=== PATIENT | female | born 1950 ===

== ENCOUNTER 2018-04-19 18:44 | Emergency (ER) | payer MEDICARE, BC, SELFPAY ==
[2018-04-19 18:54] VITALS: BP 171/91; PULSE 89; RESP 18; TEMP 36.6; O2SAT 99
--- NOTE | 2018-04-19 19:05 | ED.ABDPAIN ---
HPI - Abdominal Pain <KATY Sorenson - Last Filed: 04/19/18 22:41> General Chief Complaint: Abdominal Pain Stated Complaint: STATES STOMACH PROBLEM X2-3 WKS Time Seen by Provider: 04/19/18 19:04 Source: patient Mode of arrival: ambulatory Limitations: no limitations History of Present Illness HPI narrative: 68-year-old female with history of fibromyalgia and is nonsmoker here for complaint of having epigastric pain over the past 3 weeks. She denies any stressors or relievers of the pain. She denies any nausea vomiting. She denies any trauma to that area. No fevers no chills. She denies any urinary symptoms. Last bowel movement was yesterday and was unremarkable. She denies any other concerns or complaints at this timeframe. MD complaint: abdominal pain Related Data Home Medications Medication Instructions Recorded Confirmed clonazepam 1 mg tablet 1 mg PO BID 04/16/18 04/16/18 tramadol 50 mg disintegrating mg PO tab 04/16/18 04/16/18 tablet trazodone 50 mg tablet 50 mg PO DAILY 04/16/18 04/16/18 Previous Rx's Medication Instructions Recorded esomeprazole magnesium 20 mg PO DAILY #14 cap 04/19/18 Allergies Allergy/AdvReac Type Severity Reaction Status Date / Time acetaminophen [From Vicodin] Allergy Mild Vomiting Verified 04/16/18 11:23 hydrocodone [From Vicodin] Allergy Mild Vomiting Verified 04/16/18 11:23 zolpidem [From Ambien] Allergy Verified 04/16/18 11:23 Review of Systems <KATY Sorenson - Last Filed: 04/19/18 22:41> Constitutional Denies chills, Denies fever(s), Denies lethargy and Denies weakness Eyes Denies change in vision, Denies eye discharge, Denies irritation and Denies loss of vision ENT Ears, Nose, Mouth, and Throat: Denies change in voice, Denies neck pain and Denies sore throat Cardiovascular Denies chest pain, Denies irregular heart rhythm, Denies lightheadedness, Denies palpitations, Denies dyspnea, Denies dyspnea on exertion and Denies orthopnea Respiratory Denies cough, Denies dyspnea, Denies dyspnea on exertion and Denies wheezing Gastrointestinal Gastrointestinal: Reports abdominal pain Genitourinary Denies hematuria, Denies flank pain, Denies urinary incontinence and Denies urinary urgency Musculoskeletal Denies neck pain Integumentary/Breasts Denies pruritus, Denies erythema, Denies rash and Denies wounds Neurologic Denies confusion, Denies loss of vision and Denies weakness Psychiatric Denies anxiety, Denies confusion, Denies depression, Denies homicidal ideation and Denies suicidal ideation Endocrine Denies palpitations Hematologic/Lymphatic Denies easy bruising Allergic/Immunologic Denies wheezing Exam <KATY Sorenson - Last Filed: 04/19/18 22:41> Initial Vital Signs Initial Vital Signs: Vital Signs Temperature 97.8 F 04/19/18 18:54 Pulse Rate 89 04/19/18 18:54 Respiratory Rate 18 04/19/18 18:54 Blood Pressure 171/91 H 04/19/18 18:54 Pulse Oximetry 99 04/19/18 18:54 Const General: cooperative and well developed Nutritional Appearance: well nourished Orientation: alert, awake, oriented x3 and not confused HENMT Mouth: oral mucosae normal and moist mucous membranes Eyes Conjunctivae: conjunctivae normal Sclera: sclerae normal Pupils: PERRL EOM: EOM intact bilaterally Resp Effort & Inspection: normal respiratory effort, able to speak in complete sentences, no respiratory distress and no use of accessory muscles Auscultation: clear to auscultation bilaterally, no rales, no rhonchi and no wheezes Cardio Rate: regular rate Rhythm: regular rhythm Heart Sounds: no click, no gallops, no murmurs and no rubs Pulses: normal peripheral pulses GI Inspection: non-distended Palpation: soft, no hepatosplenomegaly, No guarding, No pulsatile mass and tender (Epigastric upper abdominal pain) Auscultation: normal bowel sounds Skin General: no rashes or lesions noted, No jaundice and No petechiae Neuro General: alert, oriented x3, gait normal and no focal motor deficits Speech: speech normal <Logan Murrieta DO - Last Filed: 04/20/18 06:54> Initial Vital Signs Initial Vital Signs: Vital Signs Temperature 97.8 F 04/19/18 18:54 Pulse Rate 89 04/19/18 18:54 Respiratory Rate 18 04/19/18 18:54 Blood Pressure 171/91 H 04/19/18 18:54 Pulse Oximetry 99 04/19/18 18:54 Course <KATY Sorenson - Last Filed: 04/19/18 22:41> Orders Ordered: ED Orders 04/19/18 19:47 US abdomen complete Stat 04/19/18 19:53 Complete Blood Count AUTO DIFF Stat Comprehensive Metabolic Panel Stat Lipase Stat Urine Microscopic Stat Vital Signs - 8 hr 04/19/18 18:54 04/19/18 21:45 Temperature 97.8 F Pulse Rate 89 55 L Respiratory Rate 18 16 Blood Pressure 171/91 H 134/83 Pulse Oximetry 99 98 <Logan Murrieta DO - Last Filed: 04/20/18 06:54> Orders Ordered: ED Orders 04/19/18 19:47 US abdomen complete Stat 04/19/18 19:53 Complete Blood Count AUTO DIFF Stat Comprehensive Metabolic Panel Stat Lipase Stat Urine Microscopic Stat Vital Signs - 8 hr 04/19/18 18:54 04/19/18 21:45 Temperature 97.8 F Pulse Rate 89 55 L Respiratory Rate 18 16 Blood Pressure 171/91 H 134/83 Pulse Oximetry 99 98 MDM - Abdominal Pain <KATY Sorenson - Last Filed: 04/19/18 22:41> Lab Data Result diagrams: 04/19/18 19:53 04/19/18 19:53 Lab Results 04/19/18 04/19/18 04/19/18 Range/Units 19:53 19:53 19:53 WBC 10.1 (4.5-11.0) X10^3/uL RBC 4.77 (4.0-5.2) X10^6/uL Hgb 14.1 (12.0-16.0) g/dL Hct 40.6 (36-46) % MCV 85.1 (80-100) fL MCH 29.7 (26-34) PG MCHC 34.9 (30-36) % RDW 13.6 (11.6-14.8) % Plt Count 281 (150-400) X10^3/uL Neut % (Auto) 62.1 (50-75) % Lymph % (Auto) 30.7 (25-40) % [place] % (Auto) 5.9 (3-14) % Eos % (Auto) 0.6 L (2-4) % Baso % (Auto) 0.7 (0-2) % Neut # (Auto) 6300 H (8083-0628) /uL Sodium 144 (137-145) mmol/L Potassium 3.8 (3.4-5.1) mmol/L Chloride 101 (98-107) mmol/L Carbon Dioxide 34 H (22-32) mmol/L BUN 26 H (7-17) mg/dL Creatinine 0.70 (0.52-1.04) mg/dL Estimated GFR > 60.0 (>60) mL/min BUN/Creatinine Ratio 37.1 H (6-22) Glucose 107 (80-110) mg/dL Calcium 10.5 H (8.4-10.2) mg/dL Total Bilirubin 0.4 (0.2-1.3) mg/dL AST 22 (14-36) IU/L ALT 21 (9-52) IU/L Alkaline Phosphatase 105 (38-126) U/L Total Protein 8.3 H (6.3-8.2) g/dL Albumin 4.6 (3.5-5.0) g/dL Globulin 3.7 (1.7-4.1) g/dL Albumin/Globulin Ratio 1.2 (1.0-2.8) Lipase 178 (23-300) U/L Urine RBC None seen (0-5/HPF) Urine WBC None seen (0-5/HPF) Amorphous Sediment 2+ Urine Bacteria None seen (None) Ur Culture Indicated? Cult not indicated Micro UA Comment Not Reportable Point of care testing: Urine Dip Bedside Urine Glucose Negative Bedside Urine Bilirubin - Negative Bedside Urine Ketone - Negative Urine Specific [place] 1.010 Bedside Urine Occult Blood +/- Bedside Urine pH 8.0 Bedside Urine Protein - Negative Bedside Urine Urobilinogen - Negative Bedside Urine Nitrite - Negative Bedside Urine Leukocytes - Negative Esterase MDM Narrative Medical decision making narrative: CBC and Chem panel were obtained were unremarkable. Lipase was negative. Abdominal ultrasound was obtained was negative for any acute findings. Urine POC was negative for urinary tract infection no emergent cause of her epigastric pain is found. Will prescribe patient esomeprozole to see if it helps her symptoms. She is encouraged to follow up with her primary care provider later this week for re-evaluation. If continued pain endoscopy may be of benefit for further diagnostics. For any worsening symptoms return emergency room <Logan Murrieta DO - Last Filed: 04/20/18 06:54> Lab Data Lab Results 04/19/18 04/19/18 04/19/18 Range/Units 19:53 19:53 19:53 WBC 10.1 (4.5-11.0) X10^3/uL RBC 4.77 (4.0-5.2) X10^6/uL Hgb 14.1 (12.0-16.0) g/dL Hct 40.6 (36-46) % MCV 85.1 (80-100) fL MCH 29.7 (26-34) PG MCHC 34.9 (30-36) % RDW 13.6 (11.6-14.8) % Plt Count 281 (150-400) X10^3/uL Neut % (Auto) 62.1 (50-75) % Lymph % (Auto) 30.7 (25-40) % [place] % (Auto) 5.9 (3-14) % Eos % (Auto) 0.6 L (2-4) % Baso % (Auto) 0.7 (0-2) % Neut # (Auto) 6300 H (3305-1348) /uL Sodium 144 (137-145) mmol/L Potassium 3.8 (3.4-5.1) mmol/L Chloride 101 (98-107) mmol/L Carbon Dioxide 34 H (22-32) mmol/L BUN 26 H (7-17) mg/dL Creatinine 0.70 (0.52-1.04) mg/dL Estimated GFR > 60.0 (>60) mL/min BUN/Creatinine Ratio 37.1 H (6-22) Glucose 107 (80-110) mg/dL Calcium 10.5 H (8.4-10.2) mg/dL Total Bilirubin 0.4 (0.2-1.3) mg/dL AST 22 (14-36) IU/L ALT 21 (9-52) IU/L Alkaline Phosphatase 105 (38-126) U/L Total Protein 8.3 H (6.3-8.2) g/dL Albumin 4.6 (3.5-5.0) g/dL Globulin 3.7 (1.7-4.1) g/dL Albumin/Globulin Ratio 1.2 (1.0-2.8) Lipase 178 (23-300) U/L Urine RBC None seen (0-5/HPF) Urine WBC None seen (0-5/HPF) Amorphous Sediment 2+ Urine Bacteria None seen (None) Ur Culture Indicated? Cult not indicated Micro UA Comment Not Reportable Point of care testing: Urine Dip Bedside Urine Glucose Negative Bedside Urine Bilirubin - Negative Bedside Urine Ketone - Negative Urine Specific [place] 1.010 Bedside Urine Occult Blood +/- Bedside Urine pH 8.0 Bedside Urine Protein - Negative Bedside Urine Urobilinogen - Negative Bedside Urine Nitrite - Negative Bedside Urine Leukocytes - Negative Esterase Discharge Plan Departure Patient Disposition: Home Clinical Impression: Abdominal pain Discharge Date/Time: 04/19/18 21:47 Interventions: ED Discharge Assessment Last Done: 04/19/18 21:45 Instructions: DI for Abdominal Pain-Adult Activity Restrictions/Additional Instructions: Laboratory results and ultrasound were unremarkable today. Cause of abdominal pain is not identified today. UR prescribed a anti acid medication use as directed. Use [id number] Tylenol as needed for any discomfort. Limit NSAID use as this could cause gastric upset. Follow up with her primary care provider later this week for re-evaluation. If continued abdominal pain endoscopy may be of benefit. Return emergency room for any worsening symptoms. Prescriptions: New esomeprazole magnesium 20 mg capsule,delayed release(DR/EC) 20 mg PO DAILY Qty: 14 RF: 0 No Action trazodone 50 mg tablet 50 mg PO DAILY RF: 0 clonazepam 1 mg tablet 1 mg PO BID RF: 0 tramadol 50 mg tablet,disintegrating PO RF: 0 Referrals: [facility] [Provider Group] <Logan Murrieta DO - Last Filed: 04/20/18 06:54> Cosign ED Attending [place] Attestation: I was immediately available in the department for consultation. Documentation has been reviewed. I agree with assessment and plan.
--- NOTE | 2018-04-19 19:47 | DI.US.S_ITS ---
PROCEDURE: US ABDOMEN COMPLETE INDICATIONS: EPIGASTRIC PAIN TECHNIQUE: Real-time scanning was performed of the abdominal and retroperitoneal organs, with image documentation. COMPARISON: None. FINDINGS: Liver: Liver is normal in size and demonstrates mild, diffuse increased echotexture. Gallbladder: Gallbladder is contracted. No gallstones. No gallbladder wall thickening, pericholecystic fluid or sonographic Crawford's sign. Biliary ducts: Intrahepatic bile ducts are non-dilated. Extrahepatic bile duct caliber measures 3.1 mm. Normal is 6-7 mm or less in diameter, or 10 mm or less post-cholecystectomy. Pancreas: Visualized portions of the pancreas are sonographically normal. Spleen: Spleen is normal in size and homogeneous in echotexture. Kidneys: Kidneys are normal in size and echotexture. Right kidney measures 11.2 cm long; left kidney measures 11.4 cm long. No hydronephrosis or nephrolithiasis. No solid masses. Aorta: Visualized aorta is normal in caliber at less than 3 cm. Iliacs: Proximal common iliac arteries are normal in caliber at less than 2.5 cm. IVC: Intrahepatic inferior vena cava is patent. Miscellaneous: No free abdominal fluid. IMPRESSION: 1. Mild diffusely increased hepatic echotexture. This finding is most likely secondary to hepatic fatty infiltration although other hepatocellular disease may have a similar appearance. Recommend clinical correlation. 2. No ultrasound findings to explain epigastric pain. Dictated by: Jess Howe M.D. on 04/19/2018 at 21:56 Approved by: Jess Howe M.D. on 04/19/2018 at 21:58
[2018-04-19 20:01] LABS: Add Manual Diff / Slide Review NO; Basophils Percent Auto 0.7 % (0-2); Eosinophils Percent Auto 0.6 % (2-4); Hematocrit 40.6 % (36-46); Hemoglobin 14.1 g/dL (12.0-16.0); Lymphocytes Percent Auto 30.7 % (25-40); Mean Corpuscular HGB Conc 34.9 % (30-36); Mean Corpuscular Hemoglobin 29.7 PG (26-34); Mean Corpuscular Volume 85.1 fL (80-100); Monocytes Percent Auto 5.9 % (3-14); Neutrophils Absolute Auto 6300 /uL (3000-5900); Neutrophils Percent Auto 62.1 % (50-75); Platelet Count 281 X10^3/uL (150-400); Red Blood Cell Count 4.77 X10^6/uL (4.0-5.2); Red Cell Distribution Width 13.6 % (11.6-14.8); White Blood Cell Count 10.1 X10^3/uL (4.5-11.0)
[2018-04-19 20:10] LABS: Bacteria Urine None Seen; RBC Urine None Seen (0-5/HPF); WBC Urine None Seen (0-5/HPF)
[2018-04-19 20:17] LABS: Alanine Aminotransferase 21 IU/L (9-52); Albumin 4.6 g/dL (3.5-5.0); Albumin Globulin Ratio 1.2 (1.0-2.8); Alkaline Phosphatase 105 U/L (38-126); Aspartate Aminotransferase 22 IU/L (14-36); BUN Creatinine Ratio 37.1 (6-22); Bilirubin Total 0.4 mg/dL (0.2-1.3); Blood Urea Nitrogen 26 mg/dL (7-17); Calcium 10.5 mg/dL (8.4-10.2); Carbon Dioxide 34 mmol/L (22-32); Chloride 101 mmol/L (98-107); Estimated Glomerular Filt Rate > 60.0 mL/min (>60); Globulin 3.7 g/dL (1.7-4.1); Glucose 107 mg/dL (80-110); HEMOLYSIS < 15 (0-50); Lipase 178 U/L (23-300); Potassium 3.8 mmol/L (3.4-5.1); Sodium 144 mmol/L (137-145); Total Protein 8.3 g/dL (6.3-8.2)
[2018-04-19 20:27] LABS: Amorphous Sediment Urine 2+
[2018-04-19 20:28] LABS: Culture Indicated Urine Cult Not Indicated
[2018-04-19 21:45] VITALS: BP 134/83; PULSE 55; RESP 16; O2SAT 98
== END 2018-04-19 21:47 | disposition home or self-care (01) ==
PROVIDERS: Emergency Provider Nurse Practitioner Family
DX: R10.9 Unspecified abdominal pain (principal)
CPT/HCPCS: 36591; 76700; 80053; 81003; 81015; 83690; 85025; 99282; 99284

== ENCOUNTER 2019-09-30 12:46 | Emergency (ER) | payer MEDICARE, BC, SELFPAY ==
[2019-09-30 12:55] VITALS: BP 162/71; PULSE 77; RESP 20; TEMP 37.1; O2SAT 99; BMI 29.7
[2019-09-30 13:53] VITALS: BP 157/70; PULSE 60; RESP 16; O2SAT 97
--- NOTE | 2019-09-30 13:54 | ED.GENADULT ---
HPI - General Adult General Chief complaint: Dizziness Stated complaint: vertigo Time Seen by Provider: 09/30/19 13:54 Source: patient Mode of arrival: Family Vehicle Limitations: no limitations History of Present Illness HPI narrative: 69-year-old woman presents with vertigo, a sense of the room is spinning. It has been intermittently present for the last 4 years. She describes 3 discrete episodes prior to the current episode she is experiencing. She states that this current episode has been present for approximately a month. She but definitely describes positional issues it is worse when she is laying down in worse with moving. Previous workup has included ENT referral trial of meclizine, benzodiazepines (she currently takes clonazepam 1 mg nightly) as well as PT referral for benign positional vertigo. She was seen by physical therapy earlier this week and was not finding it of any benefit this time, with previous episodes it had helped. She is accompanied by a good friend who had similar problems and was eventually diagnosed with vertigo variant migraine and has been significantly relieved by being on Topamax. On further questioning Jose also has a history of migraine, does note that she has had mild headaches with the episodes of vertigo that have but been bothering her recently but no aura and no severe head pain like she has had previously with migraine headaches. Related Data Home Medications Medication Instructions Recorded Confirmed clonazepam 1 mg tablet 1 mg PO BEDTIME 04/16/18 09/30/19 trazodone 50 mg tablet 50 mg PO BEDTIME 04/16/18 09/30/19 meclizine 25 mg PO TID PRN 09/30/19 09/30/19 naproxen sodium [Aleve] 220 mg PO PRN PRN 09/30/19 09/30/19 tramadol 50 mg PO Q8H PRN 09/30/19 09/30/19 Previous Rx's Medication Instructions Recorded sumatriptan succinate [Imitrex] 50 mg PO Q2-4H PRN #9 tab 09/30/19 Allergies Allergy/AdvReac Type Severity Reaction Status Date / Time acetaminophen [From Vicodin] Allergy Mild Vomiting Verified 09/30/19 12:58 hydrocodone [From Vicodin] Allergy Mild Vomiting Verified 09/30/19 12:58 zolpidem [From Ambien] Allergy Verified 09/30/19 12:58 Review of Systems Review of Systems Narrative: Denies ? fever ? cough ? cold ? chills ? chest pain ? dyspnea ? orthopnea ? wheezing ? abdominal pain ? change to bowel or bladder habits ? nausea vomiting ? skin changes ? rashes She is worried that her ears may be filled with cerumen and is wondering if congestion could perhaps be causing her symptoms despite noting that she is not particularly congested at this time Patient History Medical History (Updated 09/30/19 @ 16:30 by Milli Singer MD) BPV (benign positional vertigo) (Chronic 2014) Breast cancer (Resolved) Chronic back pain (Chronic) Fibromyalgia (Chronic) Migraines (Acute) Social History Smoking Status: Never smoker Smoking Status: Never smoker alcohol intake frequency: 0-2 drinks per day Substance Use Type: does not use Exam Narrative Exam Narrative: General: Eyes are covered, she is holding her head is still is possible, reluctant to participate in exam with concerns that will exacerbate for vertigo. HEENT: Moist mucous membranes, normal sclera with reactive pupils, she has no nystagmus and no positional nystagmus. Ear drums are mildly retracted bilaterally without obvious effusion or erythema Neck: No JVD, supple, no cervical adenopathy Respiratory: Lungs are clear to auscultation, no wheezing no rales no rhonchi. Full and symmetrical air movement Cardiac: Regular rate and rhythm no murmurs no bruits Abdomen: Soft nontender good bowel tones, no flank pain Skin: Warm and dry, no rashes Neurologic: Grossly neurologically intact with no obvious asymmetries or abnormalities Extremities: No trauma, well perfused Psych: Cooperative, appropriate insight and affect Initial Vital Signs Initial Vital Signs: Vital Signs Temperature 98.8 F 09/30/19 12:55 Pulse Rate 77 09/30/19 12:55 Respiratory Rate 20 09/30/19 12:55 Blood Pressure 162/71 H 09/30/19 12:55 Pulse Oximetry 99 09/30/19 12:55 Course Orders Ordered: ED Orders 09/30/19 13:39 EKG-12 Lead Stat Discontinued Medications Sumatriptan Succinate (Imitrex) 50 mg PO NOW ONE Stop: 09/30/19 14:47 Last Admin: 09/30/19 15:00 Dose: 50 mg Documented by: CVANCE Vital Signs Vital signs: Vital Signs - 8 hr 09/30/19 12:55 09/30/19 13:53 09/30/19 14:39 Temperature 98.8 F Pulse Rate 77 60 75 Respiratory Rate 20 16 17 Blood Pressure 162/71 H Blood Pressure [Right Arm] 157/70 H 169/73 H Pulse Oximetry 99 97 99 09/30/19 15:09 09/30/19 16:30 Temperature Pulse Rate 55 L 56 L Respiratory Rate 14 15 Blood Pressure Blood Pressure [Right Arm] 130/60 171/77 H Pulse Oximetry 98 96 Medical Decision Making Medical Records Medical records reviewed: Yes I reviewed the patient's medical records. MDM Narrative Medical decision making narrative: With patient's very benign exam including no positional vertigo alternate etiologies are considered. There is no additional suggestion of stroke. Her friend's suggestion of migraine variant is certainly in treating. To that end we tried oral Imitrex and found that her vertigo was dramatically relieved. She still had some minor symptoms with deep positional changes but was able to carry on a more coherent conversation with normal nodding and positioning while she is speaking without any vertiginous complaints. I have asked that she follow-up with her primary care physician and review possibility of migraine variant vertigo. Will give her a prescription for Imitrex. If she does use it daily then she may well benefit from prophylactic medications. Her friend has done well with Topamax and and that may be a reasonable suggestion for the patient to begin with not only for the full medical affect but also taking affect of the full placebo effect of her friend's suggestion Discharge Plan Departure Patient Disposition: Home Clinical Impression: Vertigo Migraines Qualifiers: Migraine type: unspecified Status migrainosus presence: without status migrainosus Intractability: not intractable Qualified Code(s): G43.909 - Migraine, unspecified, not intractable, without status migrainosus Instructions: DI for Dizziness-Nonvertigo Activity Restrictions/Additional Instructions: Thank you for coming in today Your exam is very reassuring. I am not seeing initial evidence of benign positional vertigo today (where the physical therapy would be very effective). I am seeing no evidence of ear infection, viral syndrome or stroke. The fact that your friend had significant luck in treating her vertigo as a migraine variant is quite interesting. The fact that your symptoms improved with Imitrex is equally interesting. I a.m. going to give you a prescription for Imitrex to use when you have particularly bad days of vertigo. If you are continuing to have mild vertigo symptoms please use the meclizine that you currently have available. It is okay to mix these 2 medications. If you find that you need the Imitrex daily, you may benefit from a migraine prevention type medications. Please schedule an appointment with Dr. Costa within the next week to follow-up and see how your dizziness is improving. If you feel that you are getting worse, developed numbness tingling or weakness in 1 part of your body or worsening vertigo that you are unable to control with the current medications you have, please feel free to return to the emergency department. I hope that you feel better Prescriptions: New sumatriptan succinate [Imitrex] 50 mg tablet 50 mg PO Q2-4H PRN (Reason: migraine headache) Qty: 9 RF: 0 No Action trazodone 50 mg tablet 50 mg PO BEDTIME RF: 0 clonazepam 1 mg tablet 1 mg PO BEDTIME RF: 0 tramadol 50 mg Tablet 50 mg PO Q8H PRN (Reason: pain) RF: 0 meclizine 25 mg tablet 25 mg PO TID PRN (Reason: Dizziness) RF: 0 naproxen sodium [Aleve] 220 mg Tablet 220 mg PO PRN PRN (Reason: pain) RF: 0 Referrals: Maikel Lazar MD [Primary Care Provider] -
[2019-09-30 14:39] VITALS: BP 169/73; PULSE 75; RESP 17; O2SAT 99
[2019-09-30] MEDS: SUMAtriptan 25 MG TABLET 50 MG PO (15:00)
[2019-09-30 15:09] VITALS: BP 130/60; PULSE 55; RESP 14; O2SAT 98
[2019-09-30 16:30] VITALS: BP 171/77; PULSE 56; RESP 15; O2SAT 96
== END 2019-09-30 16:52 | disposition home or self-care (01) ==
PROVIDERS: Emergency Provider Emergency Medicine; PCP Family Medicine
DX: R42 Dizziness and giddiness (principal)
CPT/HCPCS: 93005; 93010; 99283

== ENCOUNTER 2020-02-01 16:45 | Outpatient (RCR) | payer MEDICARE, BC, SELFPAY ==
--- NOTE | 2020-01-19 17:19 | PT.OIE ---
Current Diagnoses Benign paroxysmal vertigo, right ear (01/19/20) Benign paroxysmal vertigo, left ear (01/19/20) Benign paroxysmal vertigo, bilateral (01/19/20) Dizziness and giddiness (01/19/20) Past Medical History (Last Updated 09/30/19 @ 16:23 by Milli Singer MD) BPV (benign positional vertigo) (Chronic 2014) Breast cancer (Resolved) Chronic back pain (Chronic) Fibromyalgia (Chronic) Migraines (Acute) Visit Care Team Role Provider Type Maikel Lazar MD Primary Care Provider Non-Staff Specialty: Family Practice Address: [address] [place] [address], [phone] Email: Stiven Espinal MD Attending Provider Physician Referring Provider Specialty: Ear, Nose, Throat Address: [address] [place] [address], [id number] Email: [email or web address] Physical Therapy Initial Evaluation PT-OP-A Visit Information Start: 01/19/20 17:02 Freq: Status: Active Protocol: Document 01/19/20 16:00 DCW (Rec: 01/19/20 17:19 [facility] [id number]) Out-Patient Physical Therapy Visit Information Visit Information Visit Type Initial Evaluation Visit Start Time 16:00 Visit Stop Time 16:55 Total Visit Minutes 55 Visit Number 1 Number of CAD MANAGER Visits 0 Evaluation Information Evaluation Date 01/19/20 PT-OP-B Current Condition Start: 01/19/20 17:02 Freq: Status: Active Protocol: Document 01/19/20 16:00 DCW (Rec: 01/19/20 17:19 [facility] [id number]) Current Condition History of Current Condition Onset Date 6 month history Current Complaints Position dependent vertigo History of Current Condition Pt is a 69 year old female complaining of a six month history of motion-induced vertigo. Pt reports episodes last less than a minute. Symptoms are provoked by lying down or rolling over in bed. Pt notes she has to hold on to her dresser to feel more stable, and she frequently feels severely nauseated, however has not yet vomited. Pt has previously been treated for positional vertigo, the first time a long time ago, and then she had a recurrence four years ago, and then again three years ago, but it has been away for the last two years, before recurring another time now in July. Pt denies diplopia, dysarthria , discoordination, or decreased mentation/ consciousness. Pt denies hx of HTN, hyperlipidemia, diabetes , arrhythmia, head trauma, seizure, migraines, back/neck problems, CVA, anxiety/panic disorders, depression, or excessive smoking or drinking. Prior Treatments and Tests Pt unclear on prior treatment, just knows it fixed the problem. Treatment Goals Patient/Caregiver Goals Pt's goal for treatment is to not feel dizzy PT-OP-C Subjective Start: 01/19/20 17:02 Freq: Status: Active Protocol: Document 01/19/20 16:00 DCW (Rec: 01/19/20 17:19 [facility] [id number]) OP-PT Subjective Patient Comments Patient Comments I'm just so tired of feeling like this, I can't imagine if I need to go through the rest of my life feeling like this. Patient Questionnaires Dizziness Handicap Inventory DHI Score 74% DHI Functional Impairment 60 to 79% Impaired (Score 60- 79) PT-OP-O Vestibular Start: 01/19/20 17:02 Freq: Status: Active Protocol: Document 01/19/20 16:00 DCW (Rec: 01/19/20 17:19 [facility] [id number]) Vestibular Assessment Visual Testing Smooth Pursuits Horizontal WNL Smooth Pursuits Vertical WNL Saccades Horizontal WNL, subjective complaints of vague dizziness Gaze Evoked Nystagmus With Fixation Negative Gaze Evoked Nystagmus Without Fixation Negative Heave Test Negative Thrust Head Negative Positional Testing Esha-Hallpike Positive Left,Positive Right, Upbeating,< 60 Seconds Comments Vestibular Comments During both left and right Esha -Hallpike test, pt complained of vertigo and demonstrated up -beating, torsional nystagmus lasting approximately 15 seconds following a ~20 second latency period PT-OP-Q Treatments Start: 01/19/20 17:02 Freq: Status: Active Protocol: Document 01/19/20 16:00 DCW (Rec: 01/19/20 17:19 [facility] [id number]) Canalithic Repositioning BPPV Treatment Carin Affected Canal(s) L posterior Reps x2 Comments Modified Carin PT-OP-T Assessment and Plan Start: 01/19/20 17:02 Freq: Status: Active Protocol: Document 01/19/20 16:00 DCW (Rec: 01/19/20 17:19 DCW [id number]) Physical Therapy Assessment Rehab Potential Rehabilitation Potential Good Evaluation Complexity Number of Personal Factors/Comorbidities 0 Number of Body Systems Impaired 3 Clinical Presentation at Evaluation Stable Impairments Impairments Balance,Vestibular Goals Two Impairment Bilaterally positive [place]- Hallpike Intermediate Goal (LTG) Pt to have negative positional testing bilaterally One Impairment Pt scores a 74% disability on Dizziness Handicap Inventory Intermediate Goal (LTG) Pt to score <40% disability on DHI Assessment Summary Assessment During both left and right Esha -Hallpike test, pt complained of vertigo and, following a ~ 20 second latency period, demonstrated up-beating, torsional nystagmus lasting approximately 15 seconds, consistent with diagnosis of bilateral posterior canal BPPV , canalithiasis-type. Pt was treated with a left-sided Carin maneuver. Further left- sided positional testing was negative. Pt is very sensitive to vertigo, both physically and emotionally, and it was determined that pt would not tolerate treatment to both ears in the same visit, which typically is not a great idea anyway. Pt was educated on BPPV, expectations for treatment, possible recurrence (BPPV has a ~50% recurrence rate in the five years following treatment ), and post-Carin restrictions . Pt to return next week for a follow-up appointment, for right-sided testing and treatment, and intermittently afterward as indicated for treatment of BPPV. Physical Therapy Plan Frequency and Duration Frequency of Treatment 1x/Week Duration of Treatment 5 weeks Plan of Care Start Date 01/19/20 Plan of Care End Date 02/23/20 Therapeutic Interventions Therapeutic Interventions Balance Training,Canalithic Repositioning,Neuromuscular Re -education,Patient/Caregiver Education,Vestibular Rehabilitation Next Visit Focus/Plan Next Note Type Treatment Note Next Visit Plan R modified Carin, further positional testing
--- NOTE | 2020-01-19 17:20 | PT.OPPOC ---
Physical, Occupational & Speech Therapy At [facility] Current Diagnoses Benign paroxysmal vertigo, right ear (01/19/20) Benign paroxysmal vertigo, left ear (01/19/20) Benign paroxysmal vertigo, bilateral (01/19/20) Dizziness and giddiness (01/19/20) Visit Care Team Role Provider Type Maikel Lazar MD Primary Care Provider Non-Staff Specialty: Family Practice Address: [address] [place] [address], [phone] Email: Stiven Espinal MD Attending Provider Physician Referring Provider Specialty: Ear, Nose, Throat Address: [address] [place] [address], [phone] Email: [email or web address] Plan Of Care PT-OP-T Assessment and Plan Start: 01/19/20 17:02 Freq: Status: Active Protocol: Document 01/19/20 16:00 DCW (Rec: 01/19/20 17:19 DCW [id number]) Physical Therapy Assessment Rehab Potential Rehabilitation Potential Good Evaluation Complexity Number of Personal Factors/Comorbidities 0 Number of Body Systems Impaired 3 Clinical Presentation at Evaluation Stable Impairments Impairments Balance,Vestibular Goals Two Impairment Bilaterally positive [place]- Hallpike Gate Shear Operator Goal (LTG) Pt to have negative positional testing bilaterally One Impairment Pt scores a 74% disability on Dizziness Handicap Inventory Gate Shear Operator Goal (LTG) Pt to score <40% disability on DHI Assessment Summary Assessment During both left and right Esha -Hallpike test, pt complained of vertigo and, following a ~ 20 second latency period, demonstrated up-beating, torsional nystagmus lasting approximately 15 seconds, consistent with diagnosis of bilateral posterior canal BPPV , canalithiasis-type. Pt was treated with a left-sided Carin maneuver. Further left- sided positional testing was negative. Pt is very sensitive to vertigo, both physically and emotionally, and it was determined that pt would not tolerate treatment to both ears in the same visit, which typically is not a great idea anyway. Pt was educated on BPPV, expectations for treatment, possible recurrence (BPPV has a ~50% recurrence rate in the five years following treatment ), and post-Carin restrictions . Pt to return next week for a follow-up appointment, for right-sided testing and treatment, and intermittently afterward as indicated for treatment of BPPV. Physical Therapy Plan Frequency and Duration Frequency of Treatment 1x/Week Duration of Treatment 5 weeks Plan of Care Start Date 01/19/20 Plan of Care End Date 02/23/20 Therapeutic Interventions Therapeutic Interventions Balance Training,Canalithic Repositioning,Neuromuscular Re -education,Patient/Caregiver Education,Vestibular Rehabilitation Next Visit Focus/Plan Next Note Type Treatment Note Next Visit Plan R modified Carin, further positional testing Plan of Care Dates Plan of Care Start Date 01/19/20 Plan of Care End Date 02/23/20 Electronically Signed by: Felice Otero, PT 01/19/20 [id number] Please Sign and Return: I have reviewed this Plan of Care and certify that the skilled therapy services above are required to meet the patient?s needs. Physician Signature Date Printed Name and Credentials Clinical Instructor Signature Printed Name and Credentials
--- NOTE | 2020-01-23 10:12 | PT.OTN ---
Current Diagnoses Benign paroxysmal vertigo, right ear (01/23/20) Benign paroxysmal vertigo, left ear (01/23/20) Benign paroxysmal vertigo, bilateral (01/23/20) Dizziness and giddiness (01/23/20) Physical Therapy Treatment Note PT-OP-A Visit Information Start: 01/19/20 17:02 Freq: Status: Active Protocol: Document 01/23/20 09:45 DCW (Rec: 01/23/20 10:11 DCW [id number]) Out-Patient Physical Therapy Visit Information Visit Information Visit Type Treatment Note Visit Start Time 09:45 Visit Stop Time 10:10 Total Visit Minutes 25 Visit Number 2 Number of SINGLE RESOURCE BOSS Visits 0 Evaluation Information Evaluation Date 01/19/20 PT-OP-B Current Condition Start: 01/19/20 17:02 Freq: Status: Active Protocol: Document 01/19/20 16:00 DCW (Rec: 01/19/20 17:19 DCW [id number]) Current Condition History of Current Condition Onset Date 6 month history Current Complaints Position dependent vertigo History of Current Condition Pt is a 69 year old female complaining of a six month history of motion-induced vertigo. Pt reports episodes last less than a minute. Symptoms are provoked by lying down or rolling over in bed. Pt notes she has to hold on to her dresser to feel more stable, and she frequently feels severely nauseated, however has not yet vomited. Pt has previously been treated for positional vertigo, the first time a long time ago, and then she had a recurrence four years ago, and then again three years ago, but it has been away for the last two years, before recurring another time now in July. Pt denies diplopia, dysarthria , discoordination, or decreased mentation/ consciousness. Pt denies hx of HTN, hyperlipidemia, diabetes , arrhythmia, head trauma, seizure, migraines, back/neck problems, CVA, anxiety/panic disorders, depression, or excessive smoking or drinking. Prior Treatments and Tests Pt unclear on prior treatment, just knows it fixed the problem. Treatment Goals Patient/Caregiver Goals Pt's goal for treatment is to not feel dizzy PT-OP-C Subjective Start: 01/19/20 17:02 Freq: Status: Active Protocol: Document 01/23/20 09:45 DCW (Rec: 01/23/20 10:11 DCW [id number]) OP-PT Subjective Patient Comments Patient Comments Pt notes that she is having trouble adjusting to lying on her back propped up to sleep, but wants to change her normal positioning to decrease odds of recurrence PT-OP-O Vestibular Start: 01/19/20 17:02 Freq: Status: Active Protocol: Document 01/23/20 09:45 DCW (Rec: 01/23/20 10:11 DCW [id number]) Vestibular Assessment Positional Testing Esha-Hallpike Positive Right,Upbeating,< 60 Seconds Comments Vestibular Comments During right [place]-Hallpike test , pt complained of vertigo and demonstrated up-beating, torsional nystagmus lasting approximately 20 seconds. PT-OP-Q Treatments Start: 01/19/20 17:02 Freq: Status: Active Protocol: Document 01/23/20 09:45 DCW (Rec: 01/23/20 10:11 DCW [id number]) Canalithic Repositioning BPPV Treatment Carin Affected Canal(s) R posterior Reps x2 Comments Modified Carin PT-OP-T Assessment and Plan Start: 01/19/20 17:02 Freq: Status: Active Protocol: Document 01/23/20 09:45 DCW (Rec: 01/23/20 10:11 DCW [id number]) Physical Therapy Assessment Impairments Impairments Balance,Vestibular Goals Two Impairment Bilaterally positive [place]- Hallpike Mcc Goal (LTG) Pt to have negative positional testing bilaterally LTG Duration 02/18/20 One Impairment Pt scores a 74% disability on Dizziness Handicap Inventory Site Administrator Goal (LTG) Pt to score <40% disability on DHI LTG Duration 02/18/20 Assessment Summary Assessment During right [place]-Hallpike test , pt complained of vertigo and demonstrated up-beating, torsional nystagmus lasting approximately 20 seconds, consistent with diagnosis of right posterior canal BPPV, canalithiasis-type. Pt was treated with a right-sided Carin maneuver. Further positional testing was negative. Reviewed BPPV education and post-Carin restrictions Physical Therapy Plan Frequency and Duration Frequency of Treatment 1x/Week Duration of Treatment 5 weeks Plan of Care Start Date 01/19/20 Plan of Care End Date 02/23/20 Therapeutic Interventions Therapeutic Interventions Balance Training,Canalithic Repositioning,Neuromuscular Re -education,Patient/Caregiver Education,Vestibular Rehabilitation Next Visit Focus/Plan Next Note Type Treatment Note Next Visit Plan Further positional testing, CRM as indicated
--- NOTE | 2020-02-01 17:21 | PT.OTN ---
Current Diagnoses Benign paroxysmal vertigo, right ear (02/01/20) Benign paroxysmal vertigo, left ear (02/01/20) Benign paroxysmal vertigo, bilateral (02/01/20) Dizziness and giddiness (02/01/20) Physical Therapy Treatment Note PT-OP-A Visit Information Start: 01/19/20 17:02 Freq: Status: Active Protocol: Document 02/01/20 16:45 DCW (Rec: 02/01/20 17:20 DCW [id number]) Out-Patient Physical Therapy Visit Information Visit Information Visit Type Treatment Note Visit Start Time 16:45 Visit Stop Time 17:00 Total Visit Minutes 15 Visit Number 3 Number of PASTE MIXING SUPERVISOR Visits 0 Evaluation Information Evaluation Date 01/19/20 PT-OP-B Current Condition Start: 01/19/20 17:02 Freq: Status: Active Protocol: Document 01/19/20 16:00 DCW (Rec: 01/19/20 17:19 DCW [id number]) Current Condition History of Current Condition Onset Date 6 month history Current Complaints Position dependent vertigo History of Current Condition Pt is a 69 year old female complaining of a six month history of motion-induced vertigo. Pt reports episodes last less than a minute. Symptoms are provoked by lying down or rolling over in bed. Pt notes she has to hold on to her dresser to feel more stable, and she frequently feels severely nauseated, however has not yet vomited. Pt has previously been treated for positional vertigo, the first time a long time ago, and then she had a recurrence four years ago, and then again three years ago, but it has been away for the last two years, before recurring another time now in July. Pt denies diplopia, dysarthria , discoordination, or decreased mentation/ consciousness. Pt denies hx of HTN, hyperlipidemia, diabetes , arrhythmia, head trauma, seizure, migraines, back/neck problems, CVA, anxiety/panic disorders, depression, or excessive smoking or drinking. Prior Treatments and Tests Pt unclear on prior treatment, just knows it fixed the problem. Treatment Goals Patient/Caregiver Goals Pt's goal for treatment is to not feel dizzy PT-OP-C Subjective Start: 01/19/20 17:02 Freq: Status: Active Protocol: Document 02/01/20 16:45 DCW (Rec: 02/01/20 17:20 DCW [id number]) OP-PT Subjective Patient Comments Patient Comments Pt reports she hasn't had any symptoms since her last visit, but also admits that she has been too scared to lie her head back too far. PT-OP-O Vestibular Start: 01/19/20 17:02 Freq: Status: Active Protocol: Document 02/01/20 16:45 DCW (Rec: 02/01/20 17:20 DCW [id number]) Vestibular Assessment Positional Testing Esha-Hallpike Negative Left,Negative Right PT-OP-Q Treatments Start: 01/19/20 17:02 Freq: Status: Active Protocol: Document 02/01/20 16:45 DCW (Rec: 02/01/20 17:20 DCW [id number]) Manual Therapy Treatment Other Other Manual Treatments Positional testing PT-OP-T Assessment and Plan Start: 01/19/20 17:02 Freq: Status: Active Protocol: Document 02/01/20 16:45 DCW (Rec: 02/01/20 17:20 DCW [id number]) Physical Therapy Assessment Impairments Impairments Balance,Vestibular Goals Two Impairment Bilaterally positive [place]- Hallpike School Administrator Goal (LTG) Pt to have negative positional testing bilaterally LTG Duration 02/18/20 One Impairment Pt scores a 74% disability on Dizziness Handicap Inventory Nursing Home Goal (LTG) Pt to score <40% disability on DHI LTG Duration 02/18/20 Assessment Summary Assessment Pt currently presenting with negative positional testing, indicating no active BPPV at this time. Pt will not schedule any follow-up visits at this time, however she will not be discharged yet. If pt' s symptoms return over the next 4-6 weeks, pt will call for further follow-up visits. If she has not scheduled any visits by that time, she will be discharged, and will require a new referral in order to return for skilled vestibular therapy. Physical Therapy Plan Frequency and Duration Frequency of Treatment 1x/Week Duration of Treatment 5 weeks Plan of Care Start Date 01/19/20 Plan of Care End Date 02/23/20 Therapeutic Interventions Therapeutic Interventions Balance Training,Canalithic Repositioning,Neuromuscular Re -education,Patient/Caregiver Education,Vestibular Rehabilitation Next Visit Focus/Plan Next Note Type Treatment Note Next Visit Plan Further positional testing, CRM as indicated
--- NOTE | 2020-04-27 09:36 | PT.OPDS ---
Current Diagnoses Benign paroxysmal vertigo, right ear (02/01/20) Benign paroxysmal vertigo, left ear (02/01/20) Benign paroxysmal vertigo, bilateral (02/01/20) Visit Care Team Role Provider Type Maikel Lazar MD Primary Care Provider Non-Staff Specialty: Family Practice Address: [facility], [place], [address] Email: Stiven Espinal MD Attending Provider Physician Referring Provider Specialty: Ear, Nose, Throat Address: [address] [place] [address], [phone] Email: [email or web address] Visit Number Visit Number 3 Discharge Summary PT-OP-B Current Condition Start: 01/19/20 17:02 Freq: Status: Active Protocol: Document 01/19/20 16:00 DCW (Rec: 01/19/20 17:19 DCW [id number]) Current Condition History of Current Condition Onset Date 6 month history Current Complaints Position dependent vertigo History of Current Condition Pt is a 69 year old female complaining of a six month history of motion-induced vertigo. Pt reports episodes last less than a minute. Symptoms are provoked by lying down or rolling over in bed. Pt notes she has to hold on to her dresser to feel more stable, and she frequently feels severely nauseated, however has not yet vomited. Pt has previously been treated for positional vertigo, the first time a long time ago, and then she had a recurrence four years ago, and then again three years ago, but it has been away for the last two years, before recurring another time now in July. Pt denies diplopia, dysarthria , discoordination, or decreased mentation/ consciousness. Pt denies hx of HTN, hyperlipidemia, diabetes , arrhythmia, head trauma, seizure, migraines, back/neck problems, CVA, anxiety/panic disorders, depression, or excessive smoking or drinking. Prior Treatments and Tests Pt unclear on prior treatment, just knows it fixed the problem. Treatment Goals Patient/Caregiver Goals Pt's goal for treatment is to not feel dizzy PT-OP-C Subjective Start: 01/19/20 17:02 Freq: Status: Active Protocol: Document 02/01/20 16:45 DCW (Rec: 02/01/20 17:20 DCW [id number]) OP-PT Subjective Patient Comments Patient Comments Pt reports she hasn't had any symptoms since her last visit, but also admits that she has been too scared to lie her head back too far. PT-OP-O Vestibular Start: 01/19/20 17:02 Freq: Status: Active Protocol: Document 02/01/20 16:45 DCW (Rec: 02/01/20 17:20 DCW [id number]) Vestibular Assessment Positional Testing Esha-Hallpike Negative Left,Negative Right PT-OP-T Assessment and Plan Start: 01/19/20 17:02 Freq: Status: Active Protocol: Document 04/27/20 09:34 DCW (Rec: 04/27/20 09:35 DCW [id number]) Physical Therapy Assessment Assessment Summary Assessment At pt's last appointment, she was not presenting with any further BPPV symptoms. At that time, pt was instructed to call for more visits within one month if her symptoms returned or changed. Pt has now not been seen in nearly three months, and will be discharged from vestibular therapy at this time. Pt will require a new referral in order to return to skilled therapy. Physical Therapy Plan Discharge Physical Therapy Discharge Reasons No Longer Attending PT
== END 2020-05-14 13:05 ==
LOC: PHYS 16:45
PROVIDERS: PCP Family Medicine; Referring Provider Otolaryngology; Visit Provider Otolaryngology
DX: H81.13 Benign paroxysmal vertigo, bilateral (principal)
CPT/HCPCS: 95992; 97140; 97161

== ENCOUNTER 2022-02-17 19:24 | Observation (INO) | payer MEDICARE, BC, SELFPAY ==
[2022-02-17 19:28] VITALS: BP 188/89; PULSE 90; RESP 18; TEMP 36.7; O2SAT 99
--- NOTE | 2022-02-17 19:30 | DI.RAD.S_ITS ---
PROCEDURE: XR CHEST 1V INDICATIONS: Chest pain TECHNIQUE: One view of the chest was acquired. COMPARISON: None. FINDINGS: Surgical changes and devices: None. Lungs and pleura: Lungs are clear. No pleural effusions or pneumothorax. Mediastinum: Mediastinal contours appear normal. Heart size is normal. Bones and chest wall: No suspicious bony lesions. Overlying soft tissues appear unremarkable. IMPRESSION: No acute cardiopulmonary process demonstrated radiographically. Dictated by: Reese Moulton M.D. on 02/17/2022 at 20:08 Approved by: Reese Moulton M.D. on 02/17/2022 at 20:08
--- NOTE | 2022-02-17 19:42 | ED.CHESTPAIN ---
HPI - Chest Pain General Chief Complaint: Chest Pain Stated Complaint: CHEST PAIN/SOB Time Seen by Provider: 02/17/22 19:42 Source: patient Mode of arrival: Ambulatory History of Present Illness HPI narrative: 71F nonsmoker with history of migraines presents at the request of her primary care office due to about 2-3 weeks of increasing exercise intolerance with episodes of chest pain. She states that over the past few weeks she will frequently developed retrosternal chest pain when walking that tends to go away with rest. She states that over that time she is also become increasingly short of breath with exertion. Furthermore, her symptoms have become more severe and longer induration. She is not had chest pain yet today but is here at the request of her primary care office. She denies any dizziness, lightheadedness or weakness. She is had no fever chills. She denies nausea, vomiting, diarrhea or unexplained diaphoresis. She denies any cardiac history and has never had any provocative testing let alone heart catheterization. She is had extensive recent long-distance travel including trip to [place]. She denies any history of blood clot, cancer, or lower extremity pain, swelling or redness. Related Data Home Medications Medication Instructions Recorded Confirmed clonazepam 1 mg tablet 1 mg PO BEDTIME PRN Insomnia 04/16/18 02/17/22 trazodone 50 mg tablet 50 mg PO BEDTIME 04/16/18 02/17/22 tramadol 50 mg tablet 50 mg PO Q8H PRN pain 09/30/19 02/17/22 Allergies Allergy/AdvReac Type Severity Reaction Status Date / Time acetaminophen [From Vicodin] Allergy Mild Vomiting Verified 09/30/19 12:58 hydrocodone [From Vicodin] Allergy Mild Vomiting Verified 09/30/19 12:58 zolpidem [From Ambien] Allergy Verified 09/30/19 12:58 Review of Systems Review of Systems Narrative: GENERAL: See HPI HEENT: Denies sinus pain, ear pain, sore throat, difficulty swallowing, dizziness. RESPIRATORY: See HPI CARDIOVASCULAR: See HPI GASTROINTESTINAL: Denies nausea, vomiting, abdominal pain, diarrhea, constipation, melena. : Denies dysuria, frequency, incontinence, hematuria, urinary retention. MUSCULOSKELETAL: denies weakness, joint pain, or bony pain SKIN: Denies rash, skin lesions, or other NEUROLOGIC: Denies weakness, headache, numbness, change in speech, confusion, seizures, incoordination. PSYCHIATRIC: No concerning psychosocial issues. 12 point review of systems is negative except for those stated above Patient History Medical History BPV (benign positional vertigo) (2014) Breast cancer Chronic back pain Fibromyalgia Migraines Social History household members: children Smoking Status: Never smoker alcohol intake: never Smoking Status: Never smoker alcohol intake frequency: 0-2 drinks per day Substance Use Type: does not use Exam Narrative Exam Narrative: GENERAL: [71] year old patient appears stated age. Well-developed patient, in mild distress. HEAD: Atraumatic. Normocephalic. EYES: Pupils equal round and reactive. Extraocular motions intact. No scleral icterus. No injection or drainage. ENT: Nose without bleeding, purulent drainage. Throat without erythema, tonsillar hypertrophy or exudate. Airway patent. NECK: Trachea midline. Non tender CARDIOVASCULAR: Regular rate and rhythm without murmurs, gallops, or rubs. RESPIRATORY: Clear to auscultation. Breath sounds equal bilaterally. No wheezes, rales, or rhonchi. GASTROINTESTINAL: Abdomen soft, non-tender, nondistended. EXTREMITIES: No edema or joint tenderness. BACK: Nontender without deformity or crepitance. No flank tenderness. NEURO: AOx3. SKIN: No rash or erythema of visible areas Initial Vital Signs Initial Vital Signs: Vital Signs Temperature 98.1 F 02/17/22 19:28 Pulse Rate 90 02/17/22 19:28 Respiratory Rate 18 02/17/22 19:28 Blood Pressure 188/89 H 02/17/22 19:28 Pulse Oximetry 99 02/17/22 19:28 Oxygen Delivery Method 02/17/22 19:28 Scores HEART Score Heart Score history: Highly Suspicious Heart Score EKG: Normal Heart Score Age: > or = 65 years old Heart Score risk factors: No known risk factors Heart Score troponin: < or = to normal limit Heart Score Total: 4 Course Orders Ordered: ED Orders 02/17/22 20:15 COVID19 -Nasal RAPID/Pre-Proc Stat Acetaminophen (Acetaminophen 325 Mg Tablet) 650 mg PO Q6HR PRN PRN Reason: Fever/Mild Pain (1-3) Aspirin (Aspirin Ec 81 Mg Tablet) 81 mg PO DAILY LEX[facility] Atorvastatin Calcium (Atorvastatin 20 Mg Tablet) 40 mg PO BEDTIME [facility] Heparin Sodium (Porcine) (Heparin 5,000 Unit/Ml Vial) 5,000 unit SUBCUT BID LEXY Ondansetron HCl (Ondansetron 4 Mg/2 Ml Inj) 4 mg IV Q8HR PRN PRN Reason: Nausea And Vomiting Sodium Chloride (Sodium Chloride 0.9% Flush) 10 ml IV BID [facility] Trazodone HCl (Trazodone 50 Mg Tablet) 50 mg PO BEDTIME LEXY Last Admin: 02/18/22 01:29 Dose: 50 mg Documented By: MS Discontinued Medications Aspirin (Aspirin 81 Mg Chew Tab) 324 mg PO NOW ONE Stop: 02/17/22 19:53 Last Admin: 02/17/22 20:00 Dose: 324 mg Documented By: EB Atorvastatin Calcium (Atorvastatin 20 Mg Tablet) 40 mg PO NOW ONE Stop: 02/17/22 19:53 Last Admin: 02/17/22 20:04 Dose: 40 mg Documented By: EB Metoprolol Tartrate (Metoprolol Ir 25 Mg Tablet) 25 mg PO NOW ONE Stop: 02/17/22 19:53 Last Admin: 02/17/22 20:00 Dose: 25 mg Documented By: EB Vital Signs Vital signs: Vital Signs - 8 hr 02/17/22 19:28 02/17/22 20:56 Temperature 98.1 F Pulse Rate 90 50 L Respiratory Rate 18 17 Blood Pressure 188/89 H 170/89 H Pulse Oximetry 99 99 Oxygen Delivery Method Room Air Room Air MDM - Chest Pain Lab Data Result diagrams: 02/17/22 19:49 02/17/22 19:49 Labs: Lab Results 02/17/22 02/17/22 02/17/22 Range/Units 19:49 19:49 19:49 WBC 8.1 (4.5-11.0) X10^3/uL RBC 4.36 (4.0-5.2) X10^6/uL Hgb 13.2 (12.0-16.0) g/dL Hct 37.8 (36-46) % MCV 86.7 (80-100) fL MCH 30.3 (26-34) PG MCHC 35.0 (30-36) % RDW 14.1 (11.6-14.8) % Plt Count 288 (150-400) X10^3/uL Neut % (Auto) 56.7 (50-75) % Lymph % (Auto) 34.2 (25-40) % [place] % (Auto) 7.5 (3-14) % Eos % (Auto) 0.9 L (2-4) % Baso % (Auto) 0.7 (0-2) % Neut # (Auto) 4600 (9955-6387) /uL Lymph # (Auto) 2800 (5996-2158) /uL [place] # (Auto) 600 (0-900) /uL Eos # (Auto) 100 (0-450) /uL Baso # (Auto) 100 (0-100) /uL D-Dimer 245 H (<230) ng/mL Sodium 138 (137-145) mmol/L Potassium 3.5 (3.4-5.1) mmol/L Chloride 104 (98-107) mmol/L Carbon Dioxide 29 (22-32) mmol/L BUN 22 H (7-17) mg/dL Creatinine 0.75 (0.52-1.04) mg/dL Estimated GFR > 60 (>60) mL/min BUN/Creatinine Ratio 29.3 H (6-22) Glucose 102 (80-110) mg/dL Calcium 9.3 (8.4-10.2) mg/dL Magnesium 1.9 (1.6-2.3) mg/dL Total Bilirubin 0.3 (0.2-1.3) mg/dL AST 28 (14-36) IU/L ALT 16 (<35) IU/L Alkaline Phosphatase 97 (38-126) U/L Total Creatine Kinase 22 L (30-135) U/L CK-MB (CK-2) TNP CK-MB (CK-2) Rel Index TNP Troponin I < 0.012 (0.01-0.034) ng/mL NT-Pro-B Natriuret Pep (<125) pg/mL Total Protein 7.7 (6.3-8.2) g/dL Albumin 4.3 (3.5-5.0) g/dL Globulin 3.4 (1.7-4.1) g/dL Albumin/Globulin Ratio 1.3 (1.0-2.8) Lipase 71 (23-300) U/L Procalcitonin (<0.5) ng/mL SARS-CoV-2 (PCR) (Negative) 02/17/22 02/17/22 Range/Units 19:49 20:15 WBC (4.5-11.0) X10^3/uL RBC (4.0-5.2) X10^6/uL Hgb (12.0-16.0) g/dL Hct (36-46) % MCV (80-100) fL MCH (26-34) PG MCHC (30-36) % RDW (11.6-14.8) % Plt Count (150-400) X10^3/uL Neut % (Auto) (50-75) % Lymph % (Auto) (25-40) % [place] % (Auto) (3-14) % Eos % (Auto) (2-4) % Baso % (Auto) (0-2) % Neut # (Auto) (8144-0983) /uL Lymph # (Auto) (9869-4774) /uL [place] # (Auto) (0-900) /uL Eos # (Auto) (0-450) /uL Baso # (Auto) (0-100) /uL D-Dimer (<230) ng/mL Sodium (137-145) mmol/L Potassium (3.4-5.1) mmol/L Chloride (98-107) mmol/L Carbon Dioxide (22-32) mmol/L BUN (7-17) mg/dL Creatinine (0.52-1.04) mg/dL Estimated GFR (>60) mL/min BUN/Creatinine Ratio (6-22) Glucose (80-110) mg/dL Calcium (8.4-10.2) mg/dL Magnesium (1.6-2.3) mg/dL Total Bilirubin (0.2-1.3) mg/dL AST (14-36) IU/L ALT (<35) IU/L Alkaline Phosphatase (38-126) U/L Total Creatine Kinase (30-135) U/L CK-MB (CK-2) CK-MB (CK-2) Rel Index Troponin I (0.01-0.034) ng/mL NT-Pro-B Natriuret Pep 54 (<125) pg/mL Total Protein (6.3-8.2) g/dL Albumin (3.5-5.0) g/dL Globulin (1.7-4.1) g/dL Albumin/Globulin Ratio (1.0-2.8) Lipase (23-300) U/L Procalcitonin 0.05 (<0.5) ng/mL SARS-CoV-2 (PCR) Negative (Negative) Imaging Data Chest x-ray: Radiologist's Impression: Close Chest X-Ray (Signed) Reese Moulton - 02/17/22 Launch?[address] [address] XRay Report Signed Patient: Jacqui Hart MR#: [id number] : 1950 Acct:[id number] Age/Sex: 71 / F Date of Service: 02/17/22 Loc: ED Accession Number: [id number] ?? Procedure: XR chest 1V Ordering Provider: Logan Murrieta D.O. PROCEDURE:? XR CHEST 1V ? INDICATIONS:? Chest pain ? TECHNIQUE:? One view of the chest was acquired.? ? COMPARISON:? None. ? FINDINGS:? ? Surgical changes and devices:? None.? ? Lungs and pleura:? Lungs are clear.? No pleural effusions or pneumothorax.? ? Mediastinum:? Mediastinal contours appear normal.? Heart size is normal.? ? Bones and chest wall:? No suspicious bony lesions.? Overlying soft tissues appear unremarkable.? ? IMPRESSION:? No acute cardiopulmonary process demonstrated radiographically. ? ? Dictated by: Reese Moulton M.D. on 02/17/2022 at 20:08 ? ? Approved by: Reese Moulton M.D. on 02/17/2022 at 20:08 ? ECG Data Interpretation: [1943] EKG is normal sinus rhythm rate [ 89] and free of any signs of ischemia or ectopy. No ST segmental elevation or depression. No T wave inversions Discharge Plan Departure Patient Disposition: Admitted as Observation Clinical Impression: Chest pain, Unstable angina pectoris Admit Date/Time: 02/17/22 21:50 Admit Provider: Michoacano Rebollar
[2022-02-17] MEDS: ASPIRIN 81 MG CHEW TAB 324 MG PO (20:00)
[2022-02-17] MEDS: METOPROLOL IR 25 MG TABLET PO (20:00)
[2022-02-17 20:02] LABS: Add Manual Diff / Slide Review NO; Basophils Absolute Auto 100 /uL (0-100); Basophils Percent Auto 0.7 % (0-2); Eosinophils Absolute Auto 100 /uL (0-450); Eosinophils Percent Auto 0.9 % (2-4); Hematocrit 37.8 % (36-46); Hemoglobin 13.2 g/dL (12.0-16.0); Lymphocytes Absolute Auto 2800 /uL (1100-4500); Lymphocytes Percent Auto 34.2 % (25-40); Mean Corpuscular Hemoglobin 30.3 PG (26-34); Mean Corpuscular Volume 86.7 fL (80-100); Monocytes Absolute Auto 600 /uL (0-900); Monocytes Percent Auto 7.5 % (3-14); Neutrophils Absolute Auto 4600 /uL (1500-7000); Neutrophils Percent Auto 56.7 % (50-75); Platelet Count 288 X10^3/uL (150-400); Red Blood Cell Count 4.36 X10^6/uL (4.0-5.2); Red Cell Distribution Width 14.1 % (11.6-14.8); White Blood Cell Count 8.1 X10^3/uL (4.5-11.0)
[2022-02-17] MEDS: ATORVASTATIN 20 MG TABLET 40 MG PO (20:04)
[2022-02-17 20:16] LABS: D Dimer 245 ng/mL (<230)
[2022-02-17 20:17] LABS: Alanine Aminotransferase 16 IU/L (<35); Albumin 4.3 g/dL (3.5-5.0); Albumin Globulin Ratio 1.3 (1.0-2.8); Alkaline Phosphatase 97 U/L (38-126); Aspartate Aminotransferase 28 IU/L (14-36); BUN Creatinine Ratio 29.3 (6-22); Bilirubin Total 0.3 mg/dL (0.2-1.3); Blood Urea Nitrogen 22 mg/dL (7-17); Calcium 9.3 mg/dL (8.4-10.2); Carbon Dioxide 29 mmol/L (22-32); Chloride 104 mmol/L (98-107); Creatine Kinase 22 U/L (30-135); Estimated Glomerular Filt Rate > 60 mL/min (>60); Globulin 3.4 g/dL (1.7-4.1); Glucose 102 mg/dL (80-110); HEMOLYSIS < 15 (0-50); Lipase 71 U/L (23-300); Magnesium 1.9 mg/dL (1.6-2.3); Potassium 3.5 mmol/L (3.4-5.1); Sodium 138 mmol/L (137-145); Total Protein 7.7 g/dL (6.3-8.2)
[2022-02-17 20:29] LABS: Troponin I < 0.012 ng/mL (0.01-0.034)
[2022-02-17 20:53] LABS: COVID19 -Nasal RAPID Negative (Negative)
[2022-02-17 20:56] VITALS: BP 170/89; PULSE 50; RESP 17; O2SAT 99
--- NOTE | 2022-02-17 20:56 | PC.NURSE ---
Pt heart rate down to 49/low 50bpm. Pt asymptomatic, denies lightheadedness or other symptoms. Provider notified of this, as pt heart rate upon arrival to ER was 80-90s. Pt did receive Metoprolol roughly an hour ago.
[2022-02-17 21:15] LABS: NT-proBNP (BNP-Adult 18+) 54 pg/mL (<125)
[2022-02-17 21:23] LABS: Procalcitonin 0.05 ng/mL (<0.5)
[2022-02-17 22:15] VITALS: BMI 28.0
--- NOTE | 2022-02-17 22:16 | P.HP_ITS ---
History of Present Illness History of Present Illness Date Patient Seen: 02/17/22 Time Patient Seen: 21:30 Chief complaint: CHEST PAIN/SOB Narrative: Ms. Hart is a 71W with PMH back pain, vertigo who presents with chest pain. She states she spoke with her PCP today about her symptoms who recommended she come in to the ED. Essentially she has had multiple episodes of substernal chest pain that have occurred over the last three weeks. She states she notices the pain occurs with activity, she develops shortness of breath. She has to stop activity and eventually feels better. She has no cough, fever, chills. She has no lower extremity edema. She has no known heart disease. She has never had a stress test. She has been having lower back pain and was to get PT for this, but was limited due to vertigo. In the ED workup was done, vitals notable for elevated blood pressure. Labs notable for WBC 8.1, creatinine 0.75. Troponin negative. COVID negative. Chest xray with no acute process. EKG sinus rhythm with no acute ischemia. She was admitted for further treatment. Family history: Father from heart disease at 67 Social history: No smoking Patient History Medical History BPV (benign positional vertigo) (2013) Breast cancer Chronic back pain Fibromyalgia Migraines Family & Social History Tobacco & Substance use: Smoking Status Never smoker alcohol intake frequency 0-2 drinks per day Substance Use Type does not use Meds Home Medications and Allergies Home Medications Medication Instructions Recorded Confirmed Type clonazepam 1 mg tablet 1 mg PO BEDTIME PRN Insomnia 04/16/18 02/17/22 History trazodone 50 mg tablet 50 mg PO BEDTIME 04/16/18 02/17/22 History tramadol 50 mg tablet 50 mg PO Q8H PRN pain 09/30/19 02/17/22 History Allergies Allergy/AdvReac Type Severity Reaction Status Date / Time acetaminophen [From Vicodin] Allergy Mild Vomiting Verified 09/30/19 12:58 hydrocodone [From Vicodin] Allergy Mild Vomiting Verified 09/30/19 12:58 zolpidem [From Ambien] Allergy Verified 09/30/19 12:58 Review of Systems Review of Systems Narrative: 14 systems reviewed and negative aside from what is noted in HPI Exam Vital Signs (past 8 hours): - 02/17/22 19:28 02/17/22 20:56 Temperature 98.1 F Pulse Rate 90 50 L Respiratory Rate 18 17 Blood Pressure 188/89 H 170/89 H Pulse Oximetry 99 99 Oxygen Delivery Method Room Air Room Air Oxygen Delivery Method Room Air Narrative Exam Narrative: GEN: no acute distress HEENT: moist mucous membranes, PERRL NECK: trachea midline, no JVD CV: bradycardic, no murmurs PULM: clear bilaterally, no wheezes, rhonchi, rales ABD: soft, nontender, nondistended, no organomegaly EXT: warm and well perfused with no edema NEURO: awake, alert, oriented, no focal deficits Objective Labs Result Diagrams: 02/17/22 19:49 02/17/22 19:49 Labs: Laboratory Results - last 24 hr 02/17/22 02/17/22 02/17/22 19:49 19:49 19:49 WBC 8.1 RBC 4.36 Hgb 13.2 Hct 37.8 MCV 86.7 MCH 30.3 MCHC 35.0 RDW 14.1 Plt Count 288 Neut % (Auto) 56.7 Lymph % (Auto) 34.2 [place] % (Auto) 7.5 Eos % (Auto) 0.9 L Baso % (Auto) 0.7 Neut # (Auto) 4600 Lymph # (Auto) 2800 [place] # (Auto) 600 Eos # (Auto) 100 Baso # (Auto) 100 D-Dimer 245 H Sodium 138 Potassium 3.5 Chloride 104 Carbon Dioxide 29 BUN 22 H Creatinine 0.75 Estimated GFR > 60 BUN/Creatinine Ratio 29.3 H Glucose 102 Calcium 9.3 Magnesium 1.9 Total Bilirubin 0.3 AST 28 ALT 16 Alkaline Phosphatase 97 Total Creatine Kinase 22 L CK-MB (CK-2) TNP CK-MB (CK-2) Rel Index TNP Troponin I < 0.012 NT-Pro-B Natriuret Pep Total Protein 7.7 Albumin 4.3 Globulin 3.4 Albumin/Globulin Ratio 1.3 Lipase 71 Procalcitonin SARS-CoV-2 (PCR) 02/17/22 02/17/22 19:49 20:15 WBC RBC Hgb Hct MCV MCH MCHC RDW Plt Count Neut % (Auto) Lymph % (Auto) [place] % (Auto) Eos % (Auto) Baso % (Auto) Neut # (Auto) Lymph # (Auto) [place] # (Auto) Eos # (Auto) Baso # (Auto) D-Dimer Sodium Potassium Chloride Carbon Dioxide BUN Creatinine Estimated GFR BUN/Creatinine Ratio Glucose Calcium Magnesium Total Bilirubin AST ALT Alkaline Phosphatase Total Creatine Kinase CK-MB (CK-2) CK-MB (CK-2) Rel Index Troponin I NT-Pro-B Natriuret Pep 54 Total Protein Albumin Globulin Albumin/Globulin Ratio Lipase Procalcitonin 0.05 SARS-CoV-2 (PCR) Negative Assessment & Plan Assessment & Plan narrative: Ms. Hart is a 71W who presents with chest pain 1. Chest pain -troponins negative, EKG without ischemia -ordered for aspirin and statin -keep on tele -nuc stress test ordered 2. Low back pain -continue pain control -ordered for lumbar xray 3. Chronic vertigo -currently no symptoms -if recurrent consider meclizine vs PT eval CODE: Full Proxy: Shai Hudson, son I have utilized all available resources to reconcile the patient's home medications Time Spent With Patient Critical Care time: I spent a total of [] minutes of critical care time on this patient's care today; this time is exclusive of procedural time. Quality MIPS - Admit I confirm the patient?s Advance Care Plan is present, Code status is documented, Surrogate decision maker is in patient?s record [If Yes, STOP here]: Yes
--- NOTE | 2022-02-17 22:42 | DI.RAD.S_ITS ---
PROCEDURE: XR LUMBAR SPINE 2-3V INDICATIONS: BACK PAIN TECHNIQUE: 3 views of the lumbar spine were acquired. COMPARISON: None. FINDINGS: THERE ARE 5 [id number] LUMBAR TYPE VERTEBRAL BODIES OF HEIGHT AND ALIGNMENT. NO SUSPICIOUS LYTIC OR BLASTIC OSSEOUS LESION. NO FRACTURE. DEGENERATIVE CHANGES FROM L3-L4 THROUGH L5-S1 CHARACTERIZED BY DISC HEIGHT LOSS WITH POSTERIOR OSTEOPHYTIC RIDGING OF THE ENDPLATES AND FACET HYPERTROPHY. MODERATE TO SEVERE NEURAL FORAMINAL NARROWING FROM L3-L4 THROUGH L5-S1. LEFT GREATER THAN RIGHT SACROILIAC JOINT SPACE NARROWING AND OSTEOPHYTOSIS WITH SUBCHONDRAL SCLEROSIS. IMPRESSION: LOWER LUMBAR SPINE AND SACROILIAC DEGENERATIVE CHANGES, OVERALL MODERATE. Dictated by: Reese Moulton M.D. on 02/18/2022 at 0:30 Approved by: Reese Moulton M.D. on 02/18/2022 at 0:32
--- NOTE | 2022-02-17 22:42 | DI.NM.S_ITS ---
PROCEDURE: NM BLARI PERF SPECT R&S PHARM Rest and pharmacological stress myocardial perfusion SPECT with gated imaging and ejection fraction RADIOPHARMACEUTICAL: 8.6 mCi Tc-99m tetrafosmin IV at rest and 26 mCi Tc-99m tetrafosmin IV at peak effect of pharmacological stress. [id number] was performed. INDICATIONS: chest pain TECHNIQUE: Radiopharmaceutical was injected at peak stress test, and also at rest. SPECT images were obtained. SPECT myocardial perfusion images were displayed in short axis, horizontal long axis, and vertical long axis views. Gated images were reviewed using [employer]uferport[employer] software. COMPARISON: None. CARDIAC STRESS: A pharmacologic stress test was performed under the supervision of an attending staff, using an infusion of lexiscan 0.4mg IV X1. Hemodynamic data: There is normal blood pressure and heart rate response to pharmacologic stress. Symptoms: The patient denied anginal chest pain. Aminophylline: none EKG: No diagnostic changes of ischemia; no ectopy. FINDINGS: Raw data: There is good myocardial uptake of radiotracer. No significant motion artifacts. Left ventricle function: Gated images demonstrate normal left ventricular wall thickening. No segmental wall motion abnormalities. No transient ischemic dilation; TID is 1.02 (normal less than 1.3). Left ventricle stress end diastolic volume is 84 mL. Left ventricle stress ejection fraction is 70%; normal range is above 45%. Myocardial perfusion: There is normal distribution of activity in the right and left ventricular myocardium. No fixed or reversible perfusion defects. IMPRESSION: Low risk, normal pharmaceutical nuclear stress test 1) No perfusion evidence of ischemia or infarction. 2) Normal left ventricular size, wall motion, and systolic function (EF post stress 70%). 3) No ST changes during the study. 4) No angina during the study. 5) No prior nuclear stress test available for comparison. Dictated by: Dustin Bowles MD on 02/18/2022 at 17:06 Approved by: Dustin Bowles MD on 02/18/2022 at 17:08
[2022-02-17 23:15] VITALS: BP 141/79; PULSE 66; RESP 17; TEMP 35.7; O2SAT 99
[2022-02-18] MEDS: TRAZODONE 50 MG TABLET PO (01:29)
[2022-02-18 03:37] VITALS: BP 124/53; PULSE 44; RESP 16; TEMP 36.1; O2SAT 93
[2022-02-18 05:56] LABS: Add Manual Diff / Slide Review NO; Basophils Absolute Auto 0 /uL (0-100); Basophils Percent Auto 0.6 % (0-2); Eosinophils Absolute Auto 100 /uL (0-450); Eosinophils Percent Auto 1.4 % (2-4); Hematocrit 34.7 % (36-46); Lymphocytes Absolute Auto 2600 /uL (1100-4500); Lymphocytes Percent Auto 36.9 % (25-40); Mean Corpuscular HGB Conc 34.6 % (30-36); Mean Corpuscular Volume 86.8 fL (80-100); Monocytes Absolute Auto 500 /uL (0-900); Monocytes Percent Auto 7.5 % (3-14); Neutrophils Absolute Auto 3800 /uL (1500-7000); Neutrophils Percent Auto 53.6 % (50-75); Platelet Count 276 X10^3/uL (150-400)
[2022-02-18 06:12] LABS: BUN Creatinine Ratio 28.2 (6-22); Blood Urea Nitrogen 20 mg/dL (7-17); Calcium 8.7 mg/dL (8.4-10.2); Carbon Dioxide 28 mmol/L (22-32); Chloride 107 mmol/L (98-107); Estimated Glomerular Filt Rate > 60 mL/min (>60); Glucose 94 mg/dL (80-110); HEMOLYSIS < 15 (0-50); Potassium 3.8 mmol/L (3.4-5.1); Sodium 138 mmol/L (137-145)
[2022-02-18 07:00] VITALS: O2SAT 93
[2022-02-18 07:20] VITALS: BP 135/76; PULSE 59; RESP 19; TEMP 36.2; O2SAT 98
[2022-02-18] MEDS: HEPARIN 5,000 UNIT/ML VIAL 5000 UNIT SUBCUT (09:55)
[2022-02-18] MEDS: SODIUM CHLORIDE 0.9% FLUSH 10 ML IV (09:55)
[2022-02-18] MEDS: ASPIRIN EC 81 MG TABLET PO (09:55)
--- NOTE | 2022-02-18 10:47 | CM.DANOTE ---
Initial Discharge Assessment Note: Case received. EMR reviewed. Met with patient in her room and introduced self and role. Payer: Medicare, BS Out of [facility] PCP: Maikel Lazar 71 year old female admitted yesterday pm for chest pain. She has h/o chronic low back pain, vertigo, fibromyalgia. At baseline she states she id independent and drives. She and her son Shai share a home in [place] and she cares for self and the son cooks. Son can provide transport home She will undergo a nuclear stress today. She is a possible discharge today apparently. Plan: Follow for any discharge needs. Antonia Venegas RN/RUBIP Discharge Planning/Care Management CM Discharge Assessment Start: 02/18/22 10:42 Freq: Status: Active Protocol: Document 02/18/22 10:42 (Rec: 02/18/22 10:47 [id number]) Discharge Planning Assessment Assigned Medical Records Coder Antonia Venegas RN/RUBIP Advance Directives? Yes Advance Directives on File No History Provided By Patient Prior Living Arrangements House Household Members children Comment She and son share a home in [place]. Type of transporation used prior to Drives own vehicle admit Independent with ADL's Yes Is patient alert and oriented? Yes Comment Son does cooking. Caregiver for Another No Barriers to Discharge No Comment To have nuclear stress test today. Discharge Plan Home Referrals Initiated None needed Additional Comment She is independent at baseline , has intermittent vertigo, chronic back pain. Whiteboard Updated in Patient Room with Yes name and ext. # of Medical Records Coder Review Status In Process Next Review Type Continued Stay Review
--- NOTE | 2022-02-18 13:17 | PM.TREADMILL ---
Cardiac Stress Test Report Referral & Results Date Patient Seen: 02/18/22 Time Patient Seen: 13:17 Requesting provider: Michoacano Rebollar Indication: Chest Pain Rest ECG: Sinus rhythm Procedure Note: After Lexiscan injection had minimal dyspnea and no chest discomfort After Lexiscan injection had no significant ST changes No ectopy Impression: Normal Lexiscan stress test Nuclear images pending Please note: Actual ECG tracings can be found in the PACS system.
[2022-02-18 14:10] VITALS: BP 125/59; PULSE 88; RESP 21; TEMP 36.1; O2SAT 99
--- NOTE | 2022-02-18 17:12 | P.DS_ITS ---
History of Present Illness History of Present Illness Date Patient Seen: 02/18/22 Time Patient Seen: 17:12 Chief complaint: CHEST PAIN/SOB Narrative: Per Dr. Rebollar, Ms. Hart is a 71W with PMH back pain, vertigo who presents with chest pain. She states she spoke with her PCP today about her symptoms who recommended she come in to the ED. Essentially she has had multiple episodes of substernal chest pain that have occurred over the last three weeks. She states she notices the pain occurs with activity, she develops shortness of breath. She has to stop activity and eventually feels better. She has no cough, fever, chills. She has no lower extremity edema. She has no known heart disease. She has never had a stress test. She has been having lower back pain and was to get PT for this, but was limited due to vertigo. In the ED workup was done, vitals notable for elevated blood pressure. Labs notable for WBC 8.1, creatinine 0.75. Troponin negative. COVID negative. Chest xray with no acute process. EKG sinus rhythm with no acute ischemia. She was admitted for further treatment. Family history: Father from heart disease at 67 Social history: No smoking Discharge Providers Provider Date of admission: 02/17/22 21:50 Discharge Date: 02/18/22 Primary care physician: Maikel Lazar MD Discharge provider: Logan Greer DO Summary Hospital Course Discharge Diagnosis: 1. Chest pain 2. Low back pain 3. Chronic vertigo Hospital Course: This is a 71-year-old female with a past medical history of back pain and vertigo who was admitted after an episode of chest pain. She was determined to be at intermediate risk, and nuclear cardiac stress testing was ordered. Initial troponins were unremarkable, as was her EKG which showed no evidence of acute ischemia. Nuclear stress testing was performed which was deemed low risk for ischemia. She was discharged home after completion of her study. No medication changes are recommended time of discharge. Further outpatient evaluation could possibly include pulmonary function testing and Holter monitor given her presenting symptoms. Exam Vital Signs (past 8 hours): - 02/18/22 14:10 Temperature 96.9 F L Pulse Rate 88 Respiratory Rate 21 Blood Pressure 125/59 L Pulse Oximetry 99 Oxygen Flow Rate 0 Oxygen Delivery Method Room Air Oxygen Flow Rate 0 Narrative Exam Narrative: GEN: no acute distress, WDWN HEENT: moist mucous membranes, PERR NECK: trachea midline, no JVD CV: RRR no m/r/g PULM: clear bilaterally, no wheezes, rhonchi, rales ABD: soft, nontender, nondistended, no organomegaly EXT: warm and well perfused with no edema NEURO: awake, alert, oriented, no focal deficits Objective Labs Result Diagrams: 02/18/22 05:26 02/18/22 05:26 Labs: Laboratory Results - last 24 hr 02/17/22 02/17/22 02/17/22 19:49 19:49 19:49 WBC 8.1 RBC 4.36 Hgb 13.2 Hct 37.8 MCV 86.7 MCH 30.3 MCHC 35.0 RDW 14.1 Plt Count 288 Neut % (Auto) 56.7 Lymph % (Auto) 34.2 [place] % (Auto) 7.5 Eos % (Auto) 0.9 L Baso % (Auto) 0.7 Neut # (Auto) 4600 Lymph # (Auto) 2800 [place] # (Auto) 600 Eos # (Auto) 100 Baso # (Auto) 100 D-Dimer 245 H Sodium 138 Potassium 3.5 Chloride 104 Carbon Dioxide 29 BUN 22 H Creatinine 0.75 Estimated GFR > 60 BUN/Creatinine Ratio 29.3 H Glucose 102 Calcium 9.3 Magnesium 1.9 Total Bilirubin 0.3 AST 28 ALT 16 Alkaline Phosphatase 97 Total Creatine Kinase 22 L CK-MB (CK-2) TNP CK-MB (CK-2) Rel Index TNP Troponin I < 0.012 NT-Pro-B Natriuret Pep Total Protein 7.7 Albumin 4.3 Globulin 3.4 Albumin/Globulin Ratio 1.3 Lipase 71 Procalcitonin SARS-CoV-2 (PCR) 02/17/22 02/17/22 02/18/22 19:49 20:15 05:26 WBC 7.0 RBC 4.00 Hgb 12.0 Hct 34.7 L MCV 86.8 MCH 30.0 MCHC 34.6 RDW 14.0 Plt Count 276 Neut % (Auto) 53.6 Lymph % (Auto) 36.9 [place] % (Auto) 7.5 Eos % (Auto) 1.4 L Baso % (Auto) 0.6 Neut # (Auto) 3800 Lymph # (Auto) 2600 [place] # (Auto) 500 Eos # (Auto) 100 Baso # (Auto) 0 D-Dimer Sodium Potassium Chloride Carbon Dioxide BUN Creatinine Estimated GFR BUN/Creatinine Ratio Glucose Calcium Magnesium Total Bilirubin AST ALT Alkaline Phosphatase Total Creatine Kinase CK-MB (CK-2) CK-MB (CK-2) Rel Index Troponin I NT-Pro-B Natriuret Pep 54 Total Protein Albumin Globulin Albumin/Globulin Ratio Lipase Procalcitonin 0.05 SARS-CoV-2 (PCR) Negative 02/18/22 05:26 WBC RBC Hgb Hct MCV MCH MCHC RDW Plt Count Neut % (Auto) Lymph % (Auto) [place] % (Auto) Eos % (Auto) Baso % (Auto) Neut # (Auto) Lymph # (Auto) [place] # (Auto) Eos # (Auto) Baso # (Auto) D-Dimer Sodium 138 Potassium 3.8 Chloride 107 Carbon Dioxide 28 BUN 20 H Creatinine 0.71 Estimated GFR > 60 BUN/Creatinine Ratio 28.2 H Glucose 94 Calcium 8.7 Magnesium Total Bilirubin AST ALT Alkaline Phosphatase Total Creatine Kinase CK-MB (CK-2) CK-MB (CK-2) Rel Index Troponin I NT-Pro-B Natriuret Pep Total Protein Albumin Globulin Albumin/Globulin Ratio Lipase Procalcitonin SARS-CoV-2 (PCR) PFSH Medical History BPV (benign positional vertigo) (2013) Breast cancer Chronic back pain Fibromyalgia Migraines Social History household members: children Smoking Status: Never smoker alcohol intake: never Discharge Plan Discharge Plan Patient Disposition: Home Provider Discharge Comment: You were admitted to the hospital for further evaluation of chest pain. Your stress testing was determined to be low risk by cardiology, and symptoms are not likely related to poor blood flow to your heart. I would recommend follow up with your PCP for possible holter monitor or pulmonary (lung) function testing if your symptoms continue. Nursing Discharge Comment: call 911/return to ER if symptoms return. f/u w/ PCP w/in 10 days of d/c. take b/p and pulse for a few days prior to f/u appt. bring these w/ to your next appt. it was a pleasure to be your nurse today, thank you! take care! Enjoy [place] when you go! ( : Discharge orders & Medications Prescriptions: Continued trazodone 50 mg tablet 50 mg PO BEDTIME clonazepam 1 mg tablet 1 mg PO BEDTIME PRN (Reason: Insomnia) tramadol 50 mg Tablet 50 mg PO Q8H PRN (Reason: pain) Follow up/Referrals: Maikel Lazar MD [Primary Care Provider] - Diet/Activity/Treatments Diet: Diet as Tolerated Diet comment: regular Activity: As tolerated Discharge Data Primary Care Provider: Maikel Lazar Attending Provider: Michoacano Rebollar VTE Deep Vein Thrombosis/Pulmonary Embolism Present on Admission: No
--- NOTE | 2022-02-18 18:20 | PC.NURSE ---
denies cp/discomfort, this shift has been very comfortable. a/o, voices needs. NPO since midnight for stress test. call from nuc med: she can eat breakfast. then will have stress test at 1300. echo complete. stress test complete. d/c orders received. see d/c summary.
== END 2022-02-18 18:52 | disposition home or self-care (01) ==
LOC: ED 21:04 → AC 21:51
PROVIDERS: Admitting Provider Internal Medicine; Emergency Provider Emergency Medicine; PCP Family Medicine; Visit Provider Internal Medicine
DX: R07.9 Chest pain, unspecified (principal); R06.02 Shortness of breath; H81.10 Benign paroxysmal vertigo, unspecified ear; G43.909 Migraine, unspecified, not intractable, without status migrainosus; M54.9 Dorsalgia, unspecified; Z20.822 Contact with and (suspected) exposure to COVID-19
CPT/HCPCS: 36415; 71045; 72100; 78452; 80048; 80053; 82550; 83690; 83735; 83880; 84145; 84484; 85025; 85379; 87635; 93005; 93017; 96372; 99284; C9803; G0378; A9502; J1644; J2785

== ENCOUNTER 2022-03-28 12:00 | Outpatient (RCR) | payer MEDICARE, BC, SELFPAY ==
--- NOTE | 2022-03-21 16:00 | PT.OIE ---
Current Diagnoses Benign paroxysmal vertigo, right ear (03/21/22) Low back pain, unspecified (03/21/22) Dizziness and giddiness (03/21/22) Past Medical History (Last Reviewed 02/18/22 @ 02:41 by Michoacano Rebollar MD) BPV (benign positional vertigo) (2014) Breast cancer Chronic back pain Fibromyalgia Migraines Visit Care Team Role Provider Type Maikel Lazar MD Attending Provider Non-Staff Family Provider Primary Care Provider Referring Provider Specialty: Family Practice Address: [address] [place] [address], [phone] Email: Physical Therapy Initial Evaluation PT-OP-A Visit Information Start: 03/18/22 15:04 Freq: Status: Active Protocol: Document 03/21/22 09:44 AMB (Rec: 03/21/22 10:26 AMB [id number]) Out-Patient Physical Therapy Visit Information Visit Information Visit Type Initial Evaluation Visit Start Time 09:45 Visit Stop Time 10:30 Total Visit Minutes 45 Visit Number 1 PT-OP-B Current Condition Start: 03/18/22 15:04 Freq: Status: Active Protocol: Document 03/21/22 09:44 AMB (Rec: 03/21/22 10:26 AMB [id number]) Current Condition History of Current Condition Onset Date 4-6 months ago Current Complaints dizziness and back pain History of Current Condition Had vertigo off and on for years. Treatment for BPPV 2 years ago helped. Has fallen a few times and worried that has increased back pain (2-3 falls in last 6 months). Reports back pain is severe, more acute in the last few months, but has had back pain for years. Spinning can last for minutes. Back pain: no position really helps, historically back pain wouldn' t radiate into the buttocks or the abdomen, now it does after most recent fall. Last fall that caused the pain: In living room turned and was spinning. Had been going to PT for her back, but then vertigo got worse, so asked PCP to send her here so we could treat both. Reports lives with adult son. Treatment Goals Patient/Caregiver Goals Decrease pain/ vertigo PT-OP-C Subjective Start: 03/18/22 15:04 Freq: Status: Active Protocol: Document 03/21/22 12:52 AMB (Rec: 03/21/22 12:54 AMB [id number]) Patient Questionnaires ABC- Activity Specific Balance Confidence Scale ABC Score 8 ABC Functional Impairment 80 to <100% Impaired (Score 1- 20) Dizziness Handicap Inventory DHI Score 80 DHI Functional Impairment 80 to 99% Impaired (Score 80- 99) OP-PT Pain Assessment Comments Pain Comments 7-8/10 pain in low back that radiates into the buttocks and abdomen PT-OP-O Vestibular Start: 03/21/22 12:52 Freq: Status: Active Protocol: Document 03/21/22 12:52 AMB (Rec: 03/21/22 12:54 AMB [id number]) Vestibular Assessment Screening Tests Vestibular Artery Screen Negative Visual Testing Smooth Pursuits Horizontal WFL Smooth Pursuits Vertical WFL Saccades Horizontal WFL Saccades Vertical WFL Positional Testing [place]-Hallpike Positive Right,Upbeating,< 60 Seconds PT-OP-T Assessment and Plan Start: 03/18/22 15:04 Freq: Status: Active Protocol: Document 03/21/22 15:58 AMB (Rec: 03/21/22 16:06 AMB [id number]) Physical Therapy Assessment Rehab Potential Rehabilitation Potential Good Evaluation Complexity Number of Personal Factors/Comorbidities 1-2 Number of Body Systems Impaired 4 or More Clinical Presentation at Evaluation Evolving Impairments Impairments Activity Tolerance,Gait,Pain, Posture,Vestibular Goals Three Impairment Fall risk Short Term Goal (STG) Jacqui will be evaluated with an appropriate balance test after her BPPV has cleared to assess fall risk at that time and educated in an appropriate HEP/assistive device. STG Duration 5 weeks Two Impairment Dizziness Short Term Goal (STG) Jacqui will have a negative Esha -Hallpike. STG Duration 4 weeks Snf Goal (LTG) Jacqui will perform all bed mobility without spinning. LTG Duration 10 weeks One Impairment Back pain Short Term Goal (STG) Jacqui will drive for 30 minutes without back pain radiating into her buttocks. STG Duration 5 weeks Snf Goal (LTG) Jacqui will be independent and consistent with a HEP for core /LE strengthenging. LTG Duration 10 weeks Assessment Summary Assessment Jacqui attends PT with signs and symptoms consitent with R posterior canalithiasis BPPV. This is in the context of dizziness on and off for years with multiple falls and chronic pain. First PT will focus on clearing BPPV, pt tolerated 1 Carin maneuver during evaluation. Then PT can do a balance screen to address pt's history of multiple falls and address accordingly. At that point her back pain could either be evaluated here or at her initial physical therapy clinic that is closer to home, per patient preference. Physical Therapy Plan Frequency and Duration Frequency of Treatment 2x/Week Duration of Treatment 10 weeks Plan of Care Start Date 03/21/22 Plan of Care End Date 05/30/22 Therapeutic Interventions Therapeutic Interventions Balance Training,Canalithic Repositioning,Gait Training, Home Exercise Program,Manual Therapy,Neuromuscular Re- education,Self-Care/Home Management,Therapeutic Activities,Therapeutic Exercises Next Visit Focus/Plan Next Note Type Treatment Note Next Visit Plan Check R Isaias
--- NOTE | 2022-03-21 16:00 | PT.OPPOC ---
Physical, Occupational & Speech Therapy At [facility] Current Diagnoses Benign paroxysmal vertigo, right ear (03/21/22) Low back pain, unspecified (03/21/22) Dizziness and giddiness (03/21/22) Visit Care Team Role Provider Type Maikel Lazar MD Attending Provider Non-Staff Family Provider Primary Care Provider Referring Provider Specialty: Family Practice Address: [address] [place] [address], [phone] Email: Plan Of Care PT-OP-T Assessment and Plan Start: 03/18/22 15:04 Freq: Status: Active Protocol: Document 03/21/22 15:58 AMB (Rec: 03/21/22 16:06 AMB [id number]) Physical Therapy Assessment Rehab Potential Rehabilitation Potential Good Evaluation Complexity Number of Personal Factors/Comorbidities 1-2 Number of Body Systems Impaired 4 or More Clinical Presentation at Evaluation Evolving Impairments Impairments Activity Tolerance,Gait,Pain, Posture,Vestibular Goals Three Impairment Fall risk Short Term Goal (STG) Jacqui will be evaluated with an appropriate balance test after her BPPV has cleared to assess fall risk at that time and educated in an appropriate HEP/assistive device. STG Duration 5 weeks Two Impairment Dizziness Short Term Goal (STG) Jacqui will have a negative Esha -Hallpike. STG Duration 4 weeks Senior Javascript Developer Goal (LTG) Jacqui will perform all bed mobility without spinning. LTG Duration 10 weeks One Impairment Back pain Short Term Goal (STG) Jacqui will drive for 30 minutes without back pain radiating into her buttocks. STG Duration 5 weeks Usp Goal (LTG) Jacqui will be independent and consistent with a HEP for core /LE strengthenging. LTG Duration 10 weeks Assessment Summary Assessment Jacqui attends PT with signs and symptoms consitent with R posterior canalithiasis BPPV. This is in the context of dizziness on and off for years with multiple falls and chronic pain. First PT will focus on clearing BPPV, pt tolerated 1 Carin maneuver during evaluation. Then PT can do a balance screen to address pt's history of multiple falls and address accordingly. At that point her back pain could either be evaluated here or at her intial physical therapy clinic that is closer to home, per patient preference. Physical Therapy Plan Frequency and Duration Frequency of Treatment 2x/Week Duration of Treatment 10 weeks Plan of Care Start Date 03/21/22 Plan of Care End Date 05/30/22 Therapeutic Interventions Therapeutic Interventions Balance Training,Canalithic Repositioning,Gait Training, Home Exercise Program,Manual Therapy,Neuromuscular Re- education,Self-Care/Home Management,Therapeutic Activities,Therapeutic Exercises Next Visit Focus/Plan Next Note Type Treatment Note Next Visit Plan Check R Isaias Plan of Care Dates Plan of Care Start Date 03/21/22 Plan of Care End Date 05/30/22 Electronically Signed by: Coleen Nguyen, PT 03/22/22 8303 If you are in agreement with this Plan of Care, please return a signed and dated copy. I have reviewed this Plan of Care and certify that the skilled therapy services above are required to meet the patient?s needs. Physician Signature Date Printed Name and Credentials Clinical Instructor Signature Printed Name and Credentials
--- NOTE | 2022-03-28 12:36 | PT.OTN ---
Current Diagnoses Benign paroxysmal vertigo, right ear (03/28/22) Low back pain, unspecified (03/28/22) Dizziness and giddiness (03/28/22) Physical Therapy Treatment Note PT-OP-A Visit Information Start: 03/18/22 15:04 Freq: Status: Active Protocol: Document 03/28/22 11:45 DCW (Rec: 03/28/22 12:36 DCW [id number]) Out-Patient Physical Therapy Visit Information Visit Information Visit Type Treatment Note Visit Start Time 11:45 Visit Stop Time 12:25 Total Visit Minutes 40 Visit Number 2 PT-OP-B Current Condition Start: 03/18/22 15:04 Freq: Status: Active Protocol: Document 03/21/22 09:44 AMB (Rec: 03/21/22 10:26 AMB [id number]) Current Condition History of Current Condition Onset Date 4-6 months ago Current Complaints dizziness and back pain History of Current Condition Had vertigo off and on for years. Treatment for BPPV 2 years ago helped. Has fallen a few times and worried that has increased back pain (2-3 falls in last 6 months). Reports back pain is severe, more acute in the last few months, but has had back pain for years. Spinning can last for minutes. Back pain: no position really helps, historically back pain wouldn' t radiate into the buttocks or the abdomen, now it does after most recent fall. Last fall that caused the pain: In living room turned and was spinning. Had been going to PT for her back, but then vertigo got worse, so asked PCP to send her here so we could treat both. Reports lives with adult son. Treatment Goals Patient/Caregiver Goals Decrease pain/ vertigo PT-OP-C Subjective Start: 03/18/22 15:04 Freq: Status: Active Protocol: Document 03/28/22 11:45 DCW (Rec: 03/28/22 12:36 DCW [id number]) OP-PT Subjective Patient Comments Patient Comments I've still been afraid to go to the right. Pt unable to report if she is still symptomatic. PT-OP-D Balance Start: 03/18/22 15:04 Freq: Status: Active Protocol: Document 03/28/22 11:45 DCW (Rec: 03/28/22 12:36 DCW [id number]) Mccormack Balance Assessment Evaluation Sitting to Standing Ability Independent w/out Hands Unsupported Stance Safely- 2 minutes Sitting Unsupported, Feet on Floor Safely- 2 minutes Standing to Sitting Ability Safely, Minimal Hand Use Transfer Ability Safely, Minimal Hand Use Unsupported Stance- Eyes Closed Safely, 10 seconds Unsupported Stance- Eyes Open Independent, 1 minute Reaching Forward Standing Safely, 5 inches Pick- Up Object From Floor Supervision Look Behind Shoulder - Standing Shifts Weight Unilateral Turning 360 Degrees Turns Bilateral, < 4 secs Unsupported Stance, Alternating Feet on (I)- 8 Steps in 20 secs Stair Unsupported Tandem Stance Achieves Tandem Unilateral Leg Stance Lifts Leg/Holds 10 secs Total Score Mccormack Total Score (out of 56 points) 53 Mccormack Impairment Rating 1 to 19% Impaired (Score 45-55 ) PT-OP-O Vestibular Start: 03/21/22 12:52 Freq: Status: Active Protocol: Document 03/28/22 11:45 DCW (Rec: 03/28/22 12:36 [facility] [id number]) Vestibular Assessment Positional Testing Esha-Hallpike Negative Left,Negative Right Rolling Test Negative Left,Negative Right PT-OP-Q Treatments Start: 03/18/22 15:04 Freq: Status: Active Protocol: Document 03/28/22 11:45 DCW (Rec: 03/28/22 12:36 [facility] [id number]) Manual Therapy Treatment Other Other Manual Treatments Positional testing Neuro Re-Education Treatment Other Activities Testing Comments Mccormack Balance Self-Care/Home Management Treatment Education Other Education Safety, BPPV education PT-OP-T Assessment and Plan Start: 03/18/22 15:04 Freq: Status: Active Protocol: Document 03/28/22 11:45 DCW (Rec: 03/28/22 12:36 [facility] [id number]) Physical Therapy Assessment Impairments Impairments Activity Tolerance,Gait,Pain, Posture,Vestibular Goals Three Impairment Fall risk Short Term Goal (STG) Jacqui will be evaluated with an appropriate balance test after her BPPV has cleared to assess fall risk at that time and educated in an appropriate HEP/assistive device. STG Duration 5 weeks Two Impairment Dizziness Short Term Goal (STG) Jacqui will have a negative [place] -Hallpike. STG Duration 4 weeks Rn Ccu Goal (LTG) Jacqui will perform all bed mobility without spinning. LTG Duration 10 weeks One Impairment Back pain Short Term Goal (STG) Jacqui will drive for 30 minutes without back pain radiating into her buttocks. STG Duration 5 weeks Rn Ccu Goal (LTG) Jacqui will be independent and consistent with a HEP for core /LE strengthenging. LTG Duration 10 weeks Assessment Summary Assessment Pt positional testing completely negative today, but feeling more assured about her ability to perform bed mobility without feeling dizzy . Mccormack testing today scored 53 /56, and all areas that pt lost points appeared to be much more affected by her back pain than any imbalance. At this point, pt okay with switching to address her back pain, but is unsure if she will be continuing at this clinic for her back, or if she will return to the PT clinic closer to home. Pt would like to contact the other clinic first and see how quickly they are able to get her in. Physical Therapy Plan Frequency and Duration Frequency of Treatment 2x/Week Duration of Treatment 10 weeks Plan of Care Start Date 03/21/22 Plan of Care End Date 05/30/22 Therapeutic Interventions Therapeutic Interventions Balance Training,Canalithic Repositioning,Gait Training, Home Exercise Program,Manual Therapy,Neuromuscular Re- education,Self-Care/Home Management,Therapeutic Activities,Therapeutic Exercises Next Visit Focus/Plan Next Note Type Treatment Note Next Visit Plan Further assess pt's low back pain
--- NOTE | 2022-04-04 13:05 | PT.OPDS ---
Current Diagnoses Benign paroxysmal vertigo, right ear (03/28/22) Low back pain, unspecified (03/28/22) Dizziness and giddiness (03/28/22) Visit Care Team Role Provider Type Maikel Lazar MD Attending Provider Non-Staff Family Provider Primary Care Provider Referring Provider Specialty: Family Practice Address: [address] [place] [address], [phone] Email: Visit Number Visit Number 2 Discharge Summary PT-OP-B Current Condition Start: 03/18/22 15:04 Freq: Status: Active Protocol: Document 03/21/22 09:44 AMB (Rec: 03/21/22 10:26 AMB [id number]) Current Condition History of Current Condition Onset Date 4-6 months ago Current Complaints dizziness and back pain History of Current Condition Had vertigo off and on for years. Treatment for BPPV 2 years ago helped. Has fallen a few times and worried that has increased back pain (2-3 falls in last 6 months). Reports back pain is severe, more acute in the last few months, but has had back pain for years. Spinning can last for minutes. Back pain: no position really helps, historically back pain wouldn' t radiate into the buttocks or the abdomen, now it does after most recent fall. Last fall that caused the pain: In living room turned and was spinning. Had been going to PT for her back, but then vertigo got worse, so asked PCP to send her here so we could treat both. Reports lives with adult son. Treatment Goals Patient/Caregiver Goals Decrease pain/ vertigo PT-OP-C Subjective Start: 03/18/22 15:04 Freq: Status: Active Protocol: Document 03/28/22 11:45 DCW (Rec: 03/28/22 12:36 DCW [id number]) OP-PT Subjective Patient Comments Patient Comments I've still been afraid to go to the right. Pt unable to report if she is still symptomatic. PT-OP-D Balance Start: 03/18/22 15:04 Freq: Status: Active Protocol: Document 03/28/22 11:45 DCW (Rec: 03/28/22 12:36 DCW [id number]) M[place]les Balance Assessment Evaluation Sitting to Standing Ability Independent w/out Hands Unsupported Stance Safely- 2 minutes Sitting Unsupported, Feet on Floor Safely- 2 minutes Standing to Sitting Ability Safely, Minimal Hand Use Transfer Ability Safely, Minimal Hand Use Unsupported Stance- Eyes Closed Safely, 10 seconds Unsupported Stance- Eyes Open Independent, 1 minute Reaching Forward Standing Safely, 5 inches Pick- Up Object From Floor Supervision Look Behind Shoulder - Standing Shifts Weight Unilateral Turning 360 Degrees Turns Bilateral, < 4 secs Unsupported Stance, Alternating Feet on (I)- 8 Steps in 20 secs Stair Unsupported Tandem Stance Achieves Tandem Unilateral Leg Stance Lifts Leg/Holds 10 secs Total Score M[place]les Total Score (out of 56 points) 53 [place]les Impairment Rating 1 to 19% Impaired (Score 45-55 ) PT-OP-O Vestibular Start: 03/21/22 12:52 Freq: Status: Active Protocol: Document 03/28/22 11:45 DCW (Rec: 03/28/22 12:36 DCW [id number]) Vestibular Assessment Positional Testing Esha-Hallpike Negative Left,Negative Right Rolling Test Negative Left,Negative Right PT-OP-T Assessment and Plan Start: 03/18/22 15:04 Freq: Status: Active Protocol: Document 04/04/22 13:04 AMB (Rec: 04/04/22 13:05 AMB [id number]) Physical Therapy Assessment Goals Three Impairment Fall risk Short Term Goal (STG) Jacqui will be evaluated with an appropriate balance test after her BPPV has cleared to assess fall risk at that time and educated in an appropriate HEP/assistive device. STG Duration MET Two Impairment Dizziness Short Term Goal (STG) Jacqui will have a negative Ehsa -Hallpike. STG Duration MET Correction Goal (LTG) Jacqui will perform all bed mobility without spinning. LTG Duration MET One Impairment Back pain Short Term Goal (STG) Jacqui will drive for 30 minutes without back pain radiating into her buttocks. STG Duration 5 weeks Blender Operator Goal (LTG) Jacqui will be independent and consistent with a HEP for core /LE strengthenging. LTG Duration 10 weeks Assessment Summary Assessment Jacqui had a negative BPPV assessment and scored WNL on MIRELES, she elected to return to her original physial therapist that is closer to home to continue with her lumbar PT. she is therefore discharged from this clinic after successful treatment for BPPV.
== END 2022-04-09 12:39 ==
LOC: PHYS 12:00
PROVIDERS: Family Provider Family Medicine; PCP Family Medicine; Referring Provider Family Medicine; Visit Provider Family Medicine
DX: M54.50 Low back pain, unspecified (principal); H81.11 Benign paroxysmal vertigo, right ear
CPT/HCPCS: 97112; 97140; 97162; 97535

== ENCOUNTER 2025-01-27 10:35 | Emergency (ER) | payer MEDICARE, BC, SELFPAY ==
[2025-01-27 10:42] VITALS: BP 184/79; PULSE 72; O2SAT 100
[2025-01-27 10:46] VITALS: BP 184/79; PULSE 73; RESP 16; TEMP 37.1; O2SAT 100; BMI 29.0
[2025-01-27 11:00] VITALS: PULSE 54; O2SAT 97
--- NOTE | 2025-01-27 11:12 | ED.ABDPAIN ---
HPI - Abdominal Pain General Chief Complaint: Abdominal Pain Stated Complaint: bloated pain in stomach Time Seen by Provider: 01/27/25 11:11 Source: patient, RN notes reviewed and old records reviewed Limitations: no limitations History of Present Illness HPI narrative: 74-year-old female history of GERD, breast cancer treated with lumpectomy, radiation, chemotherapy oral medication for 5 years presents with complaint of generalized abdominal pain that is been going on for about a month. Patient notes that is also moved her bilateral flank region she describes as sort of the all throughout she noticed some bloating kind of bilaterally but more on the left side of her upper abdomen. States that she was started on omeprazole by her primary care physician but did not seem to be helpful. Noted while she was traveling in [facility] she had some food which seemed to worsen things but has been persistently worse. She presented today as it has not resolved. She states it isn't acutely worse today but notes everything has been slowly worsening over time. No fevers or chills. No nausea or vomiting. She states there has been intermittent diarrhea versus constipation but describes them as mild. She denies any black or bloody stools. No dysuria, urgency or frequency. No vaginal bleeding or discharge. Patient notes home medications are omeprazole 20 mg daily, trazodone, tramadol and multivitamin. She was had prior 1974, prior back surgery, had lumpectomy for breast cancer in 2007 followed by chemotherapy, radiation and 5 years of tamoxifen. Allergy to Vicodin makes her vomit. No tobacco, no alcohol, no recreational drug. Patient states had regular surveillance and now has annual mammograms. Does follow regularly with primary care. Related Data Home Medications ?Medication ?Instructions ?Recorded ?Confirmed clonazepam 1 mg tablet 1 mg PO BEDTIME PRN Insomnia 04/16/18 02/17/22 trazodone 50 mg tablet 50 mg PO BEDTIME 04/16/18 02/17/22 tramadol 50 mg tablet 50 mg PO Q8H PRN pain 09/30/19 02/17/22 Previous Rx's ?Medication ?Instructions ?Recorded prednisone 10 mg tablets in a dose See Rx Instructions PO .COMPLEX 01/27/25 pack #21 ea Allergies Allergy/AdvReac Type Severity Reaction Status Date / Time acetaminophen (From Vicodin) Allergy Mild Vomiting Verified 09/30/19 12:58 hydrocodone (From Vicodin) Allergy Mild Vomiting Verified 09/30/19 12:58 zolpidem (From Ambien) Allergy Verified 09/30/19 12:58 Review of Systems Review of Systems ROS Unobtainable: All systems reviewed & are unremarkable except as noted in HPI and below Patient History Medical History Migraines Chronic back pain BPV (benign positional vertigo) (2013) Fibromyalgia Breast cancer Social History household members: children alcohol intake: never alcohol intake frequency: 0-2 drinks per day Exam Narrative Exam Narrative: GENERAL: Alert and oriented x three, female in mild distress HEENT: Head normocephalic, atraumatic, EOMI, pupils reactive, face symmetric, moist mucous membranes NECK: Supple, full range of motion CARDIOVASCULAR: Regular rate and rhythm without murmurs, rubs or gallops. RESPIRATORY: Breath sounds equal bilaterally, no wheezes rales or rhonchi. ABDOMEN: Soft, tender particularly in the right lower quadrant. Slightly distended. No fluid wave. Normoactive bowel sounds all 4 quadrants. No guarding or rebound, rigidity, no mass : Mild right CVA tenderness, no left CVA tenderness EXTREMITIES: Normal range of motion, no clubbing or edema. Neurovascularly intact NEUROLOGICAL: Cranial nerves II through XII grossly intact. Moving all extremities SKIN: Warm, dry, no petechiae, no rashes or lesions. Initial Vital Signs Initial Vital Signs: Vital Signs Pulse Rate 72 01/27/25 10:42 Blood Pressure 184/79 H 01/27/25 10:42 Pulse Oximetry 100 01/27/25 10:42 Course Orders Ordered: ED Orders 01/27/25 10:52 EKG-12 Lead Stat 01/27/25 11:02 Complete Blood Count AUTO DIFF Stat Comprehensive Metabolic Panel Stat Lipase Stat 01/27/25 11:30 Urine Microscopic Stat 01/27/25 11:40 CT abdomen pelvis w con Stat Discontinued Medications Albuterol (Albuterol 2.5 Mg/3 Ml Neb (Adult)) 2.5 mg INH NOW ONE Stop: 01/27/25 12:58 Ondansetron HCl (Ondansetron 4 Mg/2 Ml Inj) 4 mg IV NOW PRN PRN Reason: Nausea And Vomiting Ondansetron HCl (Ondansetron 4 Mg Odt) 4 mg PO NOW PRN PRN Reason: Nausea And Vomiting Vital Signs Vital signs: Vital Signs - 8 hr 01/27/25 11:00 01/27/25 12:55 Pulse Rate 54 L 56 L Respiratory Rate 17 Blood Pressure 147/63 H Pulse Oximetry 97 99 Oxygen Delivery Method Room Air MDM - Abdominal Pain Lab Data 01/27/25 11:02 01/27/25 11:02 Labs: Lab Results 01/27/25 01/27/25 Range/Units 11:02 11:30 WBC 7.7 (4.5-11.0) X10^3/uL RBC 4.42 (4.0-5.2) X10^6/uL Hgb 13.2 (12.0-16.0) g/dL Hct 39.0 (36-46) % MCV 88.1 (80-100) fL MCH 29.8 (26-34) PG MCHC 33.8 (30-36) % RDW 14.1 (11.6-14.8) % Plt Count 269 (150-400) X10^3/uL Neut % (Auto) 71.8 (50-75) % Lymph % (Auto) 23.0 L (25-40) % [place] % (Auto) 4.4 (3-14) % Eos % (Auto) 0.4 L (2-4) % Baso % (Auto) 0.4 (0-2) % Neut # (Auto) 5500 (4706-4881) /uL Lymph # (Auto) 1800 (7837-4477) /uL [place] # (Auto) 300 (0-900) /uL Eos # (Auto) 0 (0-450) /uL Baso # (Auto) 0 (0-100) /uL Sodium 138 (137-145) mmol/L Potassium 3.8 (3.4-5.1) mmol/L Chloride 105 (98-107) mmol/L Carbon Dioxide 25 (22-32) mmol/L BUN 16 (7-17) mg/dL Creatinine 0.66 (0.52-1.04) mg/dL Estimated GFR > 60 (>60) mL/min BUN/Creatinine Ratio 24.2 H (6-22) Glucose 119 H (70-99) mg/dL Calcium 9.2 (8.4-10.2) mg/dL Total Bilirubin 0.6 (0.2-1.3) mg/dL AST 31 (14-36) IU/L ALT 20 (<35) IU/L Alkaline Phosphatase 120 (38-126) U/L Total Protein 8.0 (6.3-8.2) g/dL Albumin 4.4 (3.5-5.0) g/dL Globulin 3.6 (1.7-4.1) g/dL Albumin/Globulin Ratio 1.2 (1.0-2.8) Lipase 168 (23-300) U/L Urine RBC None seen (0-5/HPF) Urine WBC None seen (0-5/HPF) Ur Squamous Epith Cells None seen (0-5/HPF) Urine Bacteria None seen (None) Ur Culture Indicated? Cult not indicated Vol Urine Centrifuged 10ml (spun) Point of care testing: Urine Dip Bedside Urine Glucose Negative Bedside Urine Bilirubin - Negative Bedside Urine Ketone - Negative Urine Specific [place] 1.010 Bedside Urine Occult Blood +/- Bedside Urine pH 6.0 Bedside Urine Protein - Negative Bedside Urine Urobilinogen - Negative Bedside Urine Nitrite - Negative Bedside Urine Leukocytes - Negative Esterase MDM Narrative Medical decision making narrative: 74-year-old female with persistent abdominal pain for the past month with some mild intermittent diarrhea and constipation patient has known history of breast cancer in 2007 sounds like was treated with a lumpectomy, radiation chemotherapy and oral medication for 5 years but notes feeling more distended particularly left upper quadrant but generalized pain back and flank, labs, urine CT abdomen pelvis were obtained. Labs show normal white count, hemoglobin and platelets, chemistries are normal, BUN and creatinine normal glucose is 119 AST ALT and lipase are normal. Urine negative for acute change, no red cells no white cells no squamous no bacteria. CT abdomen pelvis possible mild distal colitis proctitis colonic diverticula without focal diverticular inflammation colonoscopy can further evaluate clinically necessary no small-bowel obstruction. Plaz-[id number] lumbar spondylosis CT disc space height loss worst at L4-5. Incidentally noted mild endometrial thickening 0.7 cm to be further assessed with a ultrasound of clinically necessary. Incidentally noted tiny hypotension foci in the distal body and tail of the pancreas which may represent small cystic lesions. Non Urgent pancreas MRI suggested. Spoke with the patient she has follow up later in the month with the primary care. Resolve her findings in their entirety. We will do a short course of steroids to see if this is helpful with the colitis. Discussed return precautions. Patient feels very comfortable with this plan. Discharge Plan Departure Patient Disposition: Home Clinical Impression: Colitis, Lesion of pancreas Instructions: DI for Colitis Activity Restrictions/Additional Instructions: Your imaging shows some mild colitis/proctitis recommend follow up for colonoscopy. For the short term I would recommend steroids to see if this improves your symptoms. Contact is included below for follow up for colonoscopy. Your imaging incidentally shows lumbar spondylosis or changes to the spine, You also had some mild endometrial thickening at 0.7 cm I would recommend follow up with Gynecology for pelvic ultrasound. Your also noted to have a tiny hypoattenuating foci in the body and tail of the pancreas could be a small cystic lesion but is recommended to have a pancreatic MRI. Take steroids until completed. Prescription sent to [facility] in [place]. Please return for fevers, rapidly worsening pain, persistent vomiting, lightheadedness or passing out, new swelling of your extremities, Prescriptions: New prednisone 10 mg tablets,dose pack See Rx Instructions .ROUTE .COMPLEX Qty: 21 0RF Rx Instructions: 6 tabs p.o. x1 day, then 5 tabs p.o. x1 day, then 4 tablets p.o. x1 day, then 3 tabs p.o. x1 day, then 2 tabs p.o. x1 day, then 1 tab p.o. x1 day No Action trazodone 50 mg tablet 50 mg PO BEDTIME clonazepam 1 mg tablet 1 mg PO BEDTIME PRN (Reason: Insomnia) tramadol 50 mg Tablet 50 mg PO Q8H PRN (Reason: pain) Referrals: Maikel Lazar MD [Primary Care Provider, Family Practice] Cuba Pool MD [Physician, General Surgery] Stand Alone Forms: Patient Portal/API
[2025-01-27 11:13] LABS: Add Manual Diff / Slide Review NO; Hematocrit 39.0 % (36-46); Hemoglobin 13.2 g/dL (12.0-16.0); Lymphocytes Absolute Auto 1800 /uL (1100-4500); Mean Corpuscular HGB Conc 33.8 % (30-36); Mean Corpuscular Hemoglobin 29.8 PG (26-34); Mean Corpuscular Volume 88.1 fL (80-100); Platelet Count 269 X10^3/uL (150-400)
[2025-01-27 11:21] LABS: Alanine Aminotransferase 20 IU/L (<35); Albumin 4.4 g/dL (3.5-5.0); Albumin Globulin Ratio 1.2 (1.0-2.8); Alkaline Phosphatase 120 U/L (38-126); Blood Urea Nitrogen 16 mg/dL (7-17); Calcium 9.2 mg/dL (8.4-10.2); Carbon Dioxide 25 mmol/L (22-32); Chloride 105 mmol/L (98-107); Estimated Glomerular Filt Rate > 60 mL/min (>60); Globulin 3.6 g/dL (1.7-4.1); Glucose 119 mg/dL (70-99); HEMOLYSIS < 15 (0-50); Lipase 168 U/L (23-300); Potassium 3.8 mmol/L (3.4-5.1); Sodium 138 mmol/L (137-145); Total Protein 8.0 g/dL (6.3-8.2)
--- NOTE | 2025-01-27 11:40 | DI.CT.S_ITS ---
PROCEDURE: CT ABDOMEN PELVIS W CON INDICATIONS: abd pain, b/l back pain, x 1month. TECHNIQUE: After the administration of intravenous contrast, axial sections acquired from the lung bases to the pubic symphysis. Coronal and sagittal reformats were performed. For radiation dose reduction, the following was used: automated exposure control, adjustment of mA and/or kV according to patient size. COMPARISON: None. FINDINGS: Image quality: Diagnostic Lower chest: Lung bases appear unremarkable. Partially seen left breast postsurgical changes. Normal heart size. Liver: Scattered areas of focal fat suspected. No discrete suspicious lesion Gallbladder and biliary system: Unremarkable, nondilated Pancreas: No ductal dilation. Mild parenchymal atrophy Possible tiny cystic lesions are seen at the body and tail, probably under a cm. Spleen: Nonenlarged, measuring 11 cm Adrenals: No discrete nodules Kidneys: No solid renal mass. Subcentimeter lesions are present, too small to characterize, probably cysts. No hydronephrosis. Vessels and lymph nodes: The main portal vein appears patent. No lymphadenopathy identified by size criteria. No abdominal aortic aneurysm. [id number] atherosclerotic calcifications are seen Bowel and peritoneum: No evidence of small bowel obstruction. Mild distal colonic and rectal wall thickening. Colonic diverticula are present. No drainable abscess or ascites Body wall: Unremarkable Pelvis: Bladder is unremarkable. Mild endometrial thickening is present measuring 0.7 cm. Unremarkable adnexal structures on limited CT evaluation Bones: No aggressive appearing osseous abnormality. There are [id number]-[id number] degenerative changes. Disc space height loss is worst at L4-L5. IMPRESSION: Possible mild distal colitis and proctitis. Colonic diverticula without focal diverticular inflammation. Colonoscopy can further evaluate if clinically necessary. No small bowel obstruction. Zacs-[id number] lumbar spondylosis on CT. Disc space height loss worst at L4-L5. Incidentally noted mild endometrial thickening measuring 0.7 cm, which could be further assessed with ultrasound if clinically necessary. Incidentally noted tiny hypoattenuating foci in in the distal body and tail of the pancreas, which may represent small cystic lesions. A nonurgent pancreas MRI is suggested. Other findings above. Dictated by: Caio Shelby M.D. on 01/27/2025 at 10:55 Approved by: Caio Shelby M.D. on 01/27/2025 at 11:01
[2025-01-27 12:00] LABS: Culture Indicated Urine Cult Not Indicated
[2025-01-27 12:55] VITALS: BP 147/63; PULSE 56; RESP 17; O2SAT 99
== END 2025-01-27 12:56 | disposition home or self-care (01) ==
PROVIDERS: Emergency Provider Emergency Medicine; Family Provider Family Medicine; PCP Family Medicine
DX: K52.9 Noninfective gastroenteritis and colitis, unspecified (principal); K86.9 Disease of pancreas, unspecified
CPT/HCPCS: 36415; 74177; 80053; 81003; 81015; 83690; 85025; 99283; 99284; Q9967